=== PATIENT | male | born 1950 | race Two or more races ===

== ENCOUNTER 2023-03-19 11:16 | Inpatient (IN) | payer MEDICARE, MEDICAID ==
[2023-03-19] VITALS (8 sets, daily range): BP systolic 105–136; BP diastolic 41–55
[~2023-03-19] VITALS: Ht 160 cm; Wt 69.3 kg
[~2023-03-19 11:16] MED LIST: ASPI81CH43 PO; DIGO0.1262 PO; FINA5TAB4 PO; GEMF-66 PO; IPRAAER6 IN; LEVO75TA6 PO; LISI2.5T47 PO; MET25T PO; METF-371 PO; TAMS0.4C36 PO
[2023-03-19] MEDS ORDERED: VANCOMYCIN 1GM/250ML 250 ML IV ONE (11:30)
[2023-03-19] MEDS ORDERED: SODIUM CHLORIDE 0.9% 500 ML IV ONE (11:30)
[2023-03-19] MEDS ORDERED: dilTIAZem 25 MG/5 ML VIAL IV ONE (11:30)
[2023-03-19] MEDS ORDERED: PIPERACILLIN-TAZOB 3.375GM 100 ML IV ONE (11:30)
[2023-03-19 11:52] LABS: Basophils # (auto) 0 10 ^3/uL (0-0.2); Monocytes # (auto) 0.8 10 ^3/uL (0-1.3); Nucleated Red Blood Cells % 0.2 %
[2023-03-19 11:53] LABS: Basophils % (auto) 0.3 % (0.0-2.0); Eosinophils # (auto) 0.3 10 ^3/uL (0-0.8); Eosinophils % (auto) 3.1 % (0.0-7.0); Hematocrit 16.7 % (41.0-53.0); Lymphocytes # (auto) 1.3 10 ^3/uL (0.4-5.4); Lymphocytes % (auto) 12.6 % (10.0-50.0); Mean Corpuscular Hemoglobin 27.7 pg (28.0-32.0); Mean Corpuscular Hgb Conc. 31.9 g/dL (32.0-36.0); Mean Corpuscular Volume 86.9 fL (80.0-100.0); Monocytes % (auto) 7.6 % (0.0-12.0); Neutrophils # (auto) 8.1 10 ^3/uL (1.6-8.6); Neutrophils % (auto) 76.4 % (37.0-80.0); Red Blood Cells 1.93 10^6/uL (4.5-5.90); Red Cell Distribution Width 15.9 % (11.8-14.3); White Blood Cell 10.6 10^3/uL (4.4-10.8)
[2023-03-19 12:06] LABS: INR 1.04 (0.9-1.15); Partial Thromboplastin Time 25.1 SEC (24.5-34.5)
[2023-03-19 12:12] LABS: Hemoglobin 5.3 g/dL (13.5-17.5)
[2023-03-19 12:31] LABS: Albumin 2.6 g/dL (3.4-5.0); Calcium 8.2 mg/dL (8.5-10.1); Potassium 4.5 mmol/L (3.5-5.1)
[2023-03-19 12:36] LABS: Bilirubin, Total 0.2 mg/dL (0.2-1.0); Total Protein 5.4 g/dL (6.4-8.2)
[2023-03-19] MEDS ORDERED: ALBUTEROL SULF 2.5 MG/0.5ML(0.5%) NEB SOLN NEB PRN (13:30)
[2023-03-19] MEDS ORDERED: NITROGLYCERIN 0.4 MG SL TAB SL PRN (13:30)
[2023-03-19] MEDS ORDERED: DEXTROSE (50%) 50ML SYRG IV PRN (13:30)
[2023-03-19] MEDS ORDERED: MORPHINE SULFATE INJ 2 MG/ml SYRG IV PRN (13:30)
[2023-03-19] MEDS ORDERED: PANTOPRAZOLE 40 MG/10 ML VIAL INJ IV ONE (13:45)
[2023-03-19] MEDS: IPRATROPIUM BROM 0.5 MG/2.5ML INH SOL NEB SCH ×3 (14:08→22:18)
[2023-03-19] MEDS: ALBUTEROL SULF 2.5 MG/0.5ML(0.5%) NEB SOLN NEB SCH ×3 (14:08→22:18)
[2023-03-19] MEDS ORDERED: VANCOMYCIN PER PHARMACY 0 MG IV SCH (14:45)
[2023-03-19 15:59] LABS: % Iron Saturation 6.5 % (20-55)
[2023-03-19 16:08] LABS: Cholesterol 136 mg/dL (< 200); HDL Cholesterol 46 mg/dL (40-59); LDL Cholesterol 64 mg/dL (< 100); Triglycerides 156 mg/dL (< 150)
[2023-03-19] MEDS ORDERED: CYANOCOBALAMIN (B-12) 1000 MCG/1 ML VIAL IM ONE (19:30)
[2023-03-19] MEDS: ACCU-CHEK COMFORT CURVE STRIP VI SCH ×2 (20:11→23:00)
[2023-03-19] MEDS: ACETAMINOPHEN 325 MG TAB PO PRN (20:18)
[2023-03-19] MEDS: InsuLIN REG 1unit/0.01ml Soln (100units/ml) SC SCH ×2 (20:20→23:24)
[2023-03-19] MEDS: PIPERACILLIN-TAZOB 3.375GM 100 ML IV SCH (23:00)
[2023-03-20] VITALS: BP 124/55
[2023-03-20] MEDS: IPRATROPIUM BROM 0.5 MG/2.5ML INH SOL NEB SCH ×6 (02:17→22:01)
[2023-03-20] MEDS: ALBUTEROL SULF 2.5 MG/0.5ML(0.5%) NEB SOLN NEB SCH ×6 (02:17→22:01)
[2023-03-20 02:20] LABS: Urine Bacteria FEW /hpf (None Seen); Urine Blood Negative /uL (Negative); Urine Specific Gravity 1.009 (1.001-1.035); Urine WBC <1 /hpf (0 - 3)
[2023-03-20 02:25] LABS: Basophils # (auto) 0 10 ^3/uL (0-0.2); Eosinophils # (auto) 0.5 10 ^3/uL (0-0.8); Lymphocytes # (auto) 0.9 10 ^3/uL (0.4-5.4)
[2023-03-20 02:29] LABS: Basophils % (auto) 0.3 % (0.0-2.0); Eosinophils % (auto) 4.4 % (0.0-7.0); Hematocrit 25.2 % (41.0-53.0); Hemoglobin 8.6 g/dL (13.5-17.5); Lymphocytes % (auto) 8.6 % (10.0-50.0); Mean Corpuscular Hemoglobin 28.6 pg (28.0-32.0); Mean Corpuscular Hgb Conc. 34.1 g/dL (32.0-36.0); Mean Corpuscular Volume 83.7 fL (80.0-100.0); Monocytes % (auto) 9.3 % (0.0-12.0); Neutrophils # (auto) 8.4 10 ^3/uL (1.6-8.6); Neutrophils % (auto) 77.4 % (37.0-80.0); Nucleated Red Blood Cells % 0.3 %; Red Blood Cells 3.02 10^6/uL (4.5-5.90); Red Cell Distribution Width 15.6 % (11.8-14.3); White Blood Cell 10.9 10^3/uL (4.4-10.8)
[2023-03-20 05:31] LABS: Albumin 2.6 g/dL (3.4-5.0); Calcium 8.6 mg/dL (8.5-10.1); Potassium 3.6 mmol/L (3.5-5.1)
[2023-03-20 05:35] LABS: Basophils # (auto) 0 10 ^3/uL (0-0.2); Basophils % (auto) 0.3 % (0.0-2.0); Eosinophils # (auto) 0.5 10 ^3/uL (0-0.8); Eosinophils % (auto) 4.7 % (0.0-7.0); Hematocrit 26.5 % (41.0-53.0); Hemoglobin 8.8 g/dL (13.5-17.5); Lymphocytes # (auto) 0.9 10 ^3/uL (0.4-5.4); Lymphocytes % (auto) 7.7 % (10.0-50.0); Mean Corpuscular Hemoglobin 27.7 pg (28.0-32.0); Mean Corpuscular Hgb Conc. 33.2 g/dL (32.0-36.0); Mean Corpuscular Volume 83.4 fL (80.0-100.0); Neutrophils # (auto) 9.1 10 ^3/uL (1.6-8.6); Neutrophils % (auto) 78.3 % (37.0-80.0); Nucleated Red Blood Cells % 0.4 %; Red Blood Cells 3.17 10^6/uL (4.5-5.90); Red Cell Distribution Width 15.5 % (11.8-14.3); White Blood Cell 11.6 10^3/uL (4.4-10.8)
[2023-03-20 05:36] LABS: BUN/Creatinine Ratio 41.9 (10.0-20.0); Bilirubin, Total 0.3 mg/dL (0.2-1.0); Total Protein 6.2 g/dL (6.4-8.2)
[2023-03-20] MEDS: PIPERACILLIN-TAZOB 3.375GM 100 ML IV SCH (06:30)
[2023-03-20] MEDS: InsuLIN REG 1unit/0.01ml Soln (100units/ml) SC SCH ×3 (07:00→17:15)
[2023-03-20] MEDS: ACCU-CHEK COMFORT CURVE STRIP VI SCH ×4 (07:02→22:00)
[2023-03-20 08:06] LABS: Immunoglobulin G, Serum 534 mg/dL (603-1613)
[2023-03-20] MEDS ORDERED: PATIENTS OWN MEDICATION (Levothyroxine Sodium 1 TAB) PO SCH (10:00)
[2023-03-20] MEDS: TAMSULOSIN HYDROCHLORIDE 0.4 MG CAP PO SCH (10:35)
[2023-03-20] MEDS: PANTOPRAZOLE 40 MG/10 ML VIAL INJ IV SCH (10:35)
[2023-03-20] MEDS: ZINC SULFATE 220mg CAP or TAB PO SCH (10:35)
[2023-03-20] MEDS: LEVOTHYROXINE SODIUM 25 MCG TAB PO SCH (10:36)
[2023-03-20] MEDS: FINASTERIDE 5 MG TAB PO SCH (10:36)
[2023-03-20] MEDS: MULTIPLE VITAMIN TAB PO SCH (10:36)
[2023-03-20] MEDS: DIGOXIN 0.125 MG TAB PO SCH (10:37)
[2023-03-20] MEDS ORDERED: VANCOMYCIN 1GM/250ML 250 ML IV SCH (12:00)
[2023-03-20 13:57] LABS: Basophils # (auto) 0 10 ^3/uL (0-0.2); Eosinophils # (auto) 0.4 10 ^3/uL (0-0.8); Hemoglobin 9.3 g/dL (13.5-17.5); Lymphocytes # (auto) 0.8 10 ^3/uL (0.4-5.4); Lymphocytes % (auto) 8.2 % (10.0-50.0); Monocytes # (auto) 0.7 10 ^3/uL (0-1.3); Nucleated Red Blood Cells % 0.3 %
[2023-03-20 13:59] LABS: Basophils % (auto) 0.1 % (0.0-2.0); Eosinophils % (auto) 4.3 % (0.0-7.0); Hematocrit 28.6 % (41.0-53.0); Mean Corpuscular Hemoglobin 27.8 pg (28.0-32.0); Mean Corpuscular Hgb Conc. 32.5 g/dL (32.0-36.0); Mean Corpuscular Volume 85.6 fL (80.0-100.0); Monocytes % (auto) 7.3 % (0.0-12.0); Neutrophils % (auto) 80.1 % (37.0-80.0); Red Blood Cells 3.34 10^6/uL (4.5-5.90)
[2023-03-20] MEDS: CEFEPIME 1GM/ 50ML 50 ML IV SCH (14:08)
[2023-03-20] MEDS: CYANOCOBALAMIN (B-12) 1000 MCG/1 ML VIAL IM SCH (14:10)
[2023-03-20 22:00] VITALS: BP 120/74
[2023-03-20 22:08] LABS: Basophils # (auto) 0 10 ^3/uL (0-0.2); Basophils % (auto) 0.3 % (0.0-2.0); Eosinophils # (auto) 0.5 10 ^3/uL (0-0.8); Eosinophils % (auto) 4.7 % (0.0-7.0); Hematocrit 31.3 % (41.0-53.0); Hemoglobin 10.1 g/dL (13.5-17.5); Lymphocytes # (auto) 0.9 10 ^3/uL (0.4-5.4); Lymphocytes % (auto) 8.3 % (10.0-50.0); Mean Corpuscular Hemoglobin 27.3 pg (28.0-32.0); Mean Corpuscular Hgb Conc. 32.2 g/dL (32.0-36.0); Monocytes # (auto) 1.1 10 ^3/uL (0-1.3); Monocytes % (auto) 9.9 % (0.0-12.0); Neutrophils # (auto) 8.8 10 ^3/uL (1.6-8.6); Neutrophils % (auto) 76.8 % (37.0-80.0); Nucleated Red Blood Cells % 0.2 %; Red Blood Cells 3.69 10^6/uL (4.5-5.90); Red Cell Distribution Width 16.2 % (11.8-14.3); White Blood Cell 11.4 10^3/uL (4.4-10.8)
[2023-03-20 23:55] VITALS: BP 120/74
[2023-03-21] MEDS: CEFEPIME 1GM/ 50ML 50 ML IV SCH (00:11)
[2023-03-21] MEDS: ACCU-CHEK COMFORT CURVE STRIP VI SCH ×4 (00:30→21:59)
[2023-03-21] MEDS ORDERED: traMADol HCL 50 MG TAB PO PRN (00:30)
[2023-03-21] MEDS: InsuLIN REG 1unit/0.01ml Soln (100units/ml) SC SCH ×5 (00:32→21:59)
[2023-03-21] MEDS: IPRATROPIUM BROM 0.5 MG/2.5ML INH SOL NEB SCH ×6 (01:56→22:16)
[2023-03-21] MEDS: ALBUTEROL SULF 2.5 MG/0.5ML(0.5%) NEB SOLN NEB SCH ×6 (01:56→22:16)
[2023-03-21 05:10] VITALS: BP 130/59
[2023-03-21] MEDS: ACETAMINOPHEN 325 MG TAB PO PRN ×2 (06:18→21:05)
[2023-03-21 07:14] LABS: Basophils # (auto) 0 10 ^3/uL (0-0.2); Lymphocytes # (auto) 1.2 10 ^3/uL (0.4-5.4); Mean Corpuscular Hgb Conc. 32.7 g/dL (32.0-36.0); Monocytes # (auto) 1.1 10 ^3/uL (0-1.3); Red Blood Cells 3.53 10^6/uL (4.5-5.90)
[2023-03-21 07:17] LABS: Basophils % (auto) 0.5 % (0.0-2.0); Eosinophils # (auto) 0.6 10 ^3/uL (0-0.8); Eosinophils % (auto) 6.2 % (0.0-7.0); Hemoglobin 9.8 g/dL (13.5-17.5); Mean Corpuscular Hemoglobin 27.8 pg (28.0-32.0); Mean Corpuscular Volume 84.9 fL (80.0-100.0); Monocytes % (auto) 11.3 % (0.0-12.0); Neutrophils # (auto) 6.8 10 ^3/uL (1.6-8.6); Nucleated Red Blood Cells % 0.1 %; Red Cell Distribution Width 16.1 % (11.8-14.3); White Blood Cell 9.8 10^3/uL (4.4-10.8)
[2023-03-21 08:42] VITALS: BP 123/68
[2023-03-21] MEDS: FINASTERIDE 5 MG TAB PO SCH (09:30)
[2023-03-21] MEDS: MULTIPLE VITAMIN TAB PO SCH (09:30)
[2023-03-21] MEDS: ZINC SULFATE 220mg CAP or TAB PO SCH (09:31)
[2023-03-21] MEDS: TAMSULOSIN HYDROCHLORIDE 0.4 MG CAP PO SCH (09:32)
[2023-03-21] MEDS: DIGOXIN 0.125 MG TAB PO SCH (09:33)
[2023-03-21] MEDS: PANTOPRAZOLE 40 MG/10 ML VIAL INJ IV SCH (09:33)
[2023-03-21] MEDS: CYANOCOBALAMIN (B-12) 1000 MCG/1 ML VIAL IM SCH (09:34)
[2023-03-21] MEDS: ASCORBIC ACID 500 MG TAB PO SCH (10:53)
[2023-03-21] MEDS: LEVOTHYROXINE SODIUM 25 MCG TAB PO SCH (10:53)
[2023-03-21] MEDS: FERROUS SULFATE 325mg EC TAB PO SCH (10:53)
[2023-03-21 12:16] VITALS: BP 120/62
[2023-03-21 13:54] LABS: Basophils # (auto) 0 10 ^3/uL (0-0.2); Eosinophils # (auto) 0.5 10 ^3/uL (0-0.8)
[2023-03-21 13:56] LABS: Basophils % (auto) 0.4 % (0.0-2.0); Eosinophils % (auto) 6.7 % (0.0-7.0); Hematocrit 31.1 % (41.0-53.0); Hemoglobin 9.8 g/dL (13.5-17.5); Lymphocytes # (auto) 1.4 10 ^3/uL (0.4-5.4); Lymphocytes % (auto) 17.5 % (10.0-50.0); Mean Corpuscular Hgb Conc. 31.5 g/dL (32.0-36.0); Mean Corpuscular Volume 85.6 fL (80.0-100.0); Monocytes % (auto) 12.2 % (0.0-12.0); Neutrophils % (auto) 63.2 % (37.0-80.0); Nucleated Red Blood Cells % 0.2 %; Red Blood Cells 3.63 10^6/uL (4.5-5.90); Red Cell Distribution Width 16.5 % (11.8-14.3)
[2023-03-21] MEDS: VANCOMYCIN 1GM/250ML 250 ML IV SCH (15:03)
[2023-03-21 17:04] VITALS: BP 154/64
[2023-03-21] MEDS: DAKINS QUARTER STR 0.125% (NaHypochlorite) 473 ML TOPICAL SOL TOP SCH (21:58)
[2023-03-21 22:00] VITALS: BP 115/53
[2023-03-21 22:13] LABS: Basophils # (auto) 0 10 ^3/uL (0-0.2); Basophils % (auto) 0.4 % (0.0-2.0); Eosinophils # (auto) 0.4 10 ^3/uL (0-0.8); Hematocrit 27.9 % (41.0-53.0); Lymphocytes # (auto) 0.7 10 ^3/uL (0.4-5.4); Lymphocytes % (auto) 8.2 % (10.0-50.0); Mean Corpuscular Hemoglobin 27.2 pg (28.0-32.0); Mean Corpuscular Hgb Conc. 32.1 g/dL (32.0-36.0); Mean Corpuscular Volume 84.7 fL (80.0-100.0); Monocytes # (auto) 0.9 10 ^3/uL (0-1.3); Monocytes % (auto) 11.5 % (0.0-12.0); Neutrophils # (auto) 6.1 10 ^3/uL (1.6-8.6); Neutrophils % (auto) 74.9 % (37.0-80.0); Nucleated Red Blood Cells % 0.1 %; Red Cell Distribution Width 16.1 % (11.8-14.3); White Blood Cell 8.2 10^3/uL (4.4-10.8)
[2023-03-22] MEDS: ALBUTEROL SULF 2.5 MG/0.5ML(0.5%) NEB SOLN NEB SCH ×6 (01:56→22:03)
[2023-03-22] MEDS: IPRATROPIUM BROM 0.5 MG/2.5ML INH SOL NEB SCH ×6 (01:56→22:03)
[2023-03-22 05:00] VITALS: BP 145/68
[2023-03-22 05:44] VITALS: BP 148/68
[2023-03-22] MEDS: ACCU-CHEK COMFORT CURVE STRIP VI SCH ×4 (06:16→21:18)
[2023-03-22] MEDS: InsuLIN REG 1unit/0.01ml Soln (100units/ml) SC SCH ×4 (06:16→21:22)
[2023-03-22 08:46] VITALS: BP 134/64
[2023-03-22] MEDS: CYANOCOBALAMIN (B-12) 1000 MCG/1 ML VIAL IM SCH (11:33)
[2023-03-22] MEDS: PANTOPRAZOLE 40 MG/10 ML VIAL INJ IV SCH (11:34)
[2023-03-22] MEDS: FERROUS SULFATE 325mg EC TAB PO SCH (11:34)
[2023-03-22] MEDS: ASCORBIC ACID 500 MG TAB PO SCH (11:34)
[2023-03-22] MEDS: TAMSULOSIN HYDROCHLORIDE 0.4 MG CAP PO SCH (11:35)
[2023-03-22] MEDS: LEVOTHYROXINE SODIUM 25 MCG TAB PO SCH (11:35)
[2023-03-22] MEDS: MULTIPLE VITAMIN TAB PO SCH (11:35)
[2023-03-22] MEDS: FINASTERIDE 5 MG TAB PO SCH (11:35)
[2023-03-22] MEDS: ZINC SULFATE 220mg CAP or TAB PO SCH (11:36)
[2023-03-22] MEDS: DIGOXIN 0.125 MG TAB PO SCH (11:36)
[2023-03-22] MEDS: DAKINS QUARTER STR 0.125% (NaHypochlorite) 473 ML TOPICAL SOL TOP SCH ×2 (11:37→21:18)
[2023-03-22 13:00] VITALS: BP 157/71
[2023-03-22] MEDS: VANCOMYCIN 1GM/250ML 250 ML IV SCH (14:26)
[2023-03-22] MEDS: CEFEPIME 1GM/ 50ML 50 ML IV SCH (15:32)
[2023-03-22 17:00] VITALS: BP 132/69
[2023-03-22 22:00] VITALS: BP 118/60
[2023-03-23] MEDS: ALBUTEROL SULF 2.5 MG/0.5ML(0.5%) NEB SOLN NEB SCH ×6 (02:04→21:49)
[2023-03-23] MEDS: IPRATROPIUM BROM 0.5 MG/2.5ML INH SOL NEB SCH ×6 (02:04→21:49)
[2023-03-23 05:00] VITALS: BP 128/65
[2023-03-23] MEDS: LEVOTHYROXINE SODIUM 25 MCG TAB PO SCH (06:23)
[2023-03-23] MEDS: ACCU-CHEK COMFORT CURVE STRIP VI SCH ×4 (06:24→22:44)
[2023-03-23] MEDS: InsuLIN REG 1unit/0.01ml Soln (100units/ml) SC SCH ×4 (06:26→22:46)
[2023-03-23 09:00] VITALS: BP 135/72
[2023-03-23] MEDS: PANTOPRAZOLE 40 MG/10 ML VIAL INJ IV SCH (11:11)
[2023-03-23] MEDS: CYANOCOBALAMIN (B-12) 1000 MCG/1 ML VIAL IM SCH (11:11)
[2023-03-23] MEDS: FERROUS SULFATE 325mg EC TAB PO SCH (11:12)
[2023-03-23] MEDS: ZINC SULFATE 220mg CAP or TAB PO SCH (11:12)
[2023-03-23] MEDS: TAMSULOSIN HYDROCHLORIDE 0.4 MG CAP PO SCH (11:12)
[2023-03-23] MEDS: DIGOXIN 0.125 MG TAB PO SCH (11:12)
[2023-03-23] MEDS: MULTIPLE VITAMIN TAB PO SCH (11:13)
[2023-03-23] MEDS: ASCORBIC ACID 500 MG TAB PO SCH (11:13)
[2023-03-23] MEDS: DAKINS QUARTER STR 0.125% (NaHypochlorite) 473 ML TOPICAL SOL TOP SCH ×2 (11:13→22:44)
[2023-03-23] MEDS: FINASTERIDE 5 MG TAB PO SCH (11:13)
[2023-03-23 12:36] VITALS: BP 125/66
[2023-03-23] MEDS: CEFEPIME 1GM/ 50ML 50 ML IV SCH (13:55)
[2023-03-23 16:38] VITALS: BP 112/59
[2023-03-23 22:00] VITALS: BP 109/57
[2023-03-24] MEDS: IPRATROPIUM BROM 0.5 MG/2.5ML INH SOL NEB SCH ×6 (01:59→22:43)
[2023-03-24] MEDS: ALBUTEROL SULF 2.5 MG/0.5ML(0.5%) NEB SOLN NEB SCH ×6 (01:59→22:43)
[2023-03-24 05:00] VITALS: BP 146/53
[2023-03-24] MEDS: LEVOTHYROXINE SODIUM 25 MCG TAB PO SCH (06:18)
[2023-03-24] MEDS: ACCU-CHEK COMFORT CURVE STRIP VI SCH ×4 (06:18→21:53)
[2023-03-24] MEDS: InsuLIN REG 1unit/0.01ml Soln (100units/ml) SC SCH ×4 (06:22→21:40)
[2023-03-24 07:25] LABS: Calcium 8.7 mg/dL (8.5-10.1)
[2023-03-24 07:26] LABS: BUN/Creatinine Ratio 23.3 (10.0-20.0)
[2023-03-24 08:00] VITALS: BP 101/65
[2023-03-24] MEDS: PANTOPRAZOLE 40 MG/10 ML VIAL INJ IV SCH (09:20)
[2023-03-24] MEDS: FINASTERIDE 5 MG TAB PO SCH (09:21)
[2023-03-24] MEDS: ASCORBIC ACID 500 MG TAB PO SCH (09:21)
[2023-03-24] MEDS: ZINC SULFATE 220mg CAP or TAB PO SCH (09:21)
[2023-03-24] MEDS: CYANOCOBALAMIN (B-12) 1000 MCG/1 ML VIAL IM SCH (09:21)
[2023-03-24] MEDS: MULTIPLE VITAMIN TAB PO SCH (09:21)
[2023-03-24] MEDS: TAMSULOSIN HYDROCHLORIDE 0.4 MG CAP PO SCH (09:21)
[2023-03-24] MEDS: FERROUS SULFATE 325mg EC TAB PO SCH (09:21)
[2023-03-24] MEDS: DIGOXIN 0.125 MG TAB PO SCH (09:22)
[2023-03-24] MEDS: DAKINS QUARTER STR 0.125% (NaHypochlorite) 473 ML TOPICAL SOL TOP SCH ×2 (09:29→21:49)
[2023-03-24] MEDS ORDERED: VANCOMYCIN 500 MG in D5W 5% 100 ML IV ONE (10:00)
[2023-03-24 12:00] VITALS: BP 127/65
[2023-03-24] MEDS ORDERED: LACTULOSE 20Gm/30ML SOLN PO ONE (12:15)
[2023-03-24] MEDS: CEFEPIME 1GM/ 50ML 50 ML IV SCH (14:13)
[2023-03-24 16:00] VITALS: BP 142/55
[2023-03-24 22:00] VITALS: BP 129/61
[2023-03-25 00:06] LABS: Methylmalonic Acid 585 nmol/L (0-378)
[2023-03-25] MEDS: IPRATROPIUM BROM 0.5 MG/2.5ML INH SOL NEB SCH ×5 (03:17→18:05)
[2023-03-25] MEDS: ALBUTEROL SULF 2.5 MG/0.5ML(0.5%) NEB SOLN NEB SCH ×5 (03:17→18:05)
[2023-03-25 05:00] VITALS: BP 146/75
[2023-03-25] MEDS: InsuLIN REG 1unit/0.01ml Soln (100units/ml) SC SCH ×3 (06:36→17:00)
[2023-03-25] MEDS: LEVOTHYROXINE SODIUM 25 MCG TAB PO SCH (06:37)
[2023-03-25] MEDS: ACCU-CHEK COMFORT CURVE STRIP VI SCH ×3 (06:45→17:00)
[2023-03-25 08:30] VITALS: BP 147/52
[2023-03-25] MEDS: PANTOPRAZOLE 40 MG/10 ML VIAL INJ IV SCH (10:05)
[2023-03-25] MEDS: CYANOCOBALAMIN (B-12) 1000 MCG/1 ML VIAL IM SCH (10:06)
[2023-03-25] MEDS: MULTIPLE VITAMIN TAB PO SCH (10:07)
[2023-03-25] MEDS: ASCORBIC ACID 500 MG TAB PO SCH (10:07)
[2023-03-25] MEDS: ZINC SULFATE 220mg CAP or TAB PO SCH (10:08)
[2023-03-25] MEDS: FERROUS SULFATE 325mg EC TAB PO SCH (10:08)
[2023-03-25] MEDS: FINASTERIDE 5 MG TAB PO SCH (10:08)
[2023-03-25] MEDS: DIGOXIN 0.125 MG TAB PO SCH (10:08)
[2023-03-25] MEDS: TAMSULOSIN HYDROCHLORIDE 0.4 MG CAP PO SCH (10:08)
[2023-03-25] MEDS: DAKINS QUARTER STR 0.125% (NaHypochlorite) 473 ML TOPICAL SOL TOP SCH (10:09)
[2023-03-25 12:30] VITALS: BP 132/72
[2023-03-25 13:03] VITALS: BP 144/51
[2023-03-25] MEDS: CEFEPIME 1GM/ 50ML 50 ML IV SCH (14:56)
[2023-03-25 16:58] VITALS: BP 139/62
== END 2023-03-25 18:57 | DRG 871 ==
LOC: EDBD 11:16 → EDSEX 11:16 → ER 11:16 → TELE 13:30 → TELE-WESTW 03-20 21:35
PROVIDERS: ADMIT Nurse Practitioner Family; ATTEND Family Medicine
PROC: 30233N1 Transfusion of Nonautologous Red Blood Cells into Peripheral Vein, Percutaneous Approach (ICD-10-PCS; principal; 2023-03-19)
DX: A41.9 Sepsis, unspecified organism (principal); J18.9 Pneumonia, unspecified organism; E46 Unspecified protein-calorie malnutrition; I13.0 Hypertensive heart and chronic kidney disease with heart failure and stage 1 through stage 4 chronic kidney disease, or unspecified chronic kidney disease; I47.1 Supraventricular tachycardia; J44.1 Chronic obstructive pulmonary disease with (acute) exacerbation; N18.4 Chronic kidney disease, stage 4 (severe); K92.2 Gastrointestinal hemorrhage, unspecified; N17.9 Acute kidney failure, unspecified; J44.0 Chronic obstructive pulmonary disease with (acute) lower respiratory infection; E03.9 Hypothyroidism, unspecified; E11.22 Type 2 diabetes mellitus with diabetic chronic kidney disease; E53.8 Deficiency of other specified B group vitamins; I48.0 Paroxysmal atrial fibrillation; L89.621 Pressure ulcer of left heel, stage 1; S91.301A Unspecified open wound, right foot, initial encounter; X58.XXXA Exposure to other specified factors, initial encounter; L89.611 Pressure ulcer of right heel, stage 1; E78.00 Pure hypercholesterolemia, unspecified; L97.519 Non-pressure chronic ulcer of other part of right foot with unspecified severity; E11.621 Type 2 diabetes mellitus with foot ulcer; N40.0 Benign prostatic hyperplasia without lower urinary tract symptoms; D50.9 Iron deficiency anemia, unspecified; D75.838 Other thrombocytosis; Z20.822 Contact with and (suspected) exposure to COVID-19; L08.9 Local infection of the skin and subcutaneous tissue, unspecified; I70.201 Unspecified atherosclerosis of native arteries of extremities, right leg; Z91.148 Patient's other noncompliance with medication regimen for other reason; Y93.89 Activity, other specified; Y92.89 Other specified places as the place of occurrence of the external cause; Y99.8 Other external cause status; Z80.3 Family history of malignant neoplasm of breast; Z79.82 Long term (current) use of aspirin; Z79.899 Other long term (current) drug therapy; Z99.81 Dependence on supplemental oxygen
CPT/HCPCS: 36415; 71045; 80048; 80053; 80061; 80202; 81001; 82270; 82565; 82607; 82728; 82784; 82962; 83010; 83036; 83540; 83550; 83605; 83615; 83880; 83930; 84155; 84165; 84443; 84484; 85025; 85045; 85379; 85610; 85730; 86038; 86334; 86335; 86850; 86880; 86900; 86901; 86920; 87040; 87426; 93005; 93306; 93926; 94640; 96365; 96368; 96375; 97110; 97116; 97163; 97530; 99291; C9113; G0378; J1815; J2543; J7060

== ENCOUNTER 2023-04-10 19:27 | Inpatient (IN) | payer MEDICARE, MEDICAID ==
[~2023-04-10] VITALS: Ht 160 cm; Wt 68.0 kg
[2023-04-10 20:18] LABS: Basophils # (auto) 0.1 10 ^3/uL (0-0.2); Eosinophils # (auto) 0.7 10 ^3/uL (0-0.8); Hemoglobin 8.9 g/dL (13.5-17.5); Lymphocytes # (auto) 2.2 10 ^3/uL (0.4-5.4); Monocytes # (auto) 1.4 10 ^3/uL (0-1.3); White Blood Cell 13.2 10^3/uL (4.4-10.8)
[2023-04-10 20:20] LABS: Basophils % (auto) 0.4 % (0.0-2.0); Eosinophils % (auto) 5.7 % (0.0-7.0); Hematocrit 28.9 % (41.0-53.0); Mean Corpuscular Hemoglobin 24.9 pg (28.0-32.0); Mean Corpuscular Hgb Conc. 30.6 g/dL (32.0-36.0); Mean Corpuscular Volume 81.4 fL (80.0-100.0); Monocytes % (auto) 10.8 % (0.0-12.0); Neutrophils # (auto) 8.7 10 ^3/uL (1.6-8.6); Neutrophils % (auto) 66.1 % (37.0-80.0); Nucleated Red Blood Cells % 0.1 %; Red Blood Cells 3.55 10^6/uL (4.5-5.90); Red Cell Distribution Width 15.8 % (11.8-14.3)
[2023-04-10 20:38] LABS: Albumin 2.8 g/dL (3.4-5.0); BUN/Creatinine Ratio 13.3 (10.0-20.0); Calcium 9.3 mg/dL (8.5-10.1); Potassium 4.1 mmol/L (3.5-5.1)
[2023-04-10 20:41] LABS: Bilirubin, Total 0.2 mg/dL (0.2-1.0)
[2023-04-11] VITALS (7 sets, daily range): BP systolic 117–140; BP diastolic 67–84; PULSE 112–124; RESP 16–20; TEMP 98.1–98.3; O2SAT 96–98
[2023-04-11] MEDS ORDERED: DexAMETHasone SOD PHOS 10MG/1ML VIAL INJ IV ONE (05:45)
[2023-04-11] MEDS ORDERED: metroNIDAZOLE 500MG/100ML 100 ML IV ONE (05:45)
[2023-04-11] MEDS ORDERED: ALBUTEROL SULF 2.5 MG/0.5ML(0.5%) NEB SOLN NEB ONE (05:45)
[2023-04-11] MEDS ORDERED: levoFLOXacin 750MG 150 ML IV ONE (05:45)
[2023-04-11] MEDS ORDERED: ONDANSETRON HCL 4 MG/2 ML VIAL IV ONE (06:00)
[2023-04-11] MEDS ORDERED: MORPHINE SULFATE 4 MG/ML SYR/VIAL IV ONE (06:00)
[2023-04-11] MEDS ORDERED: ONDANSETRON HCL 4 MG/2 ML VIAL IV PRN (06:45)
[2023-04-11] MEDS ORDERED: ACETAMINOPHEN 325 MG TAB PO PRN (06:45)
[2023-04-11] MEDS ORDERED: DEXTROSE (50%) 50ML SYRG IV PRN (06:45)
[2023-04-11] MEDS: GABAPENTIN 100 MG CAP PO SCH ×2 (08:39→22:36)
[2023-04-11] MEDS: LEVOTHYROXINE SODIUM 88 MCG TAB PO SCH (08:40)
[2023-04-11] MEDS: InsuLIN REG 1unit/0.01ml Soln (100units/ml) SC SCH ×4 (09:08→22:41)
[2023-04-11] MEDS: ACCU-CHEK COMFORT CURVE STRIP VI SCH ×4 (09:09→22:50)
[2023-04-11] MEDS: METOPROLOL SUCCINATE XL 50 MG TAB PO SCH (10:00)
[2023-04-11] MEDS: DIGOXIN 0.125 MG TAB PO SCH (10:00)
[2023-04-11] MEDS ORDERED: PANTOPRAZOLE 40 MG TAB PO SCH (10:00)
[2023-04-11] MEDS ORDERED: CLOPIDOGREL BISULFATE 75 MG TAB PO SCH (10:00)
[2023-04-11] MEDS: cefTRIAXone 1GM/50ML D5W 50 ML IV SCH (10:22)
[2023-04-11] MEDS: metroNIDAZOLE 500MG/100ML 100 ML IV SCH ×2 (20:16→22:35)
[2023-04-11] MEDS: TAMSULOSIN HYDROCHLORIDE 0.4 MG CAP PO SCH (20:19)
[2023-04-11] MEDS: ALBUTEROL SULF 2.5 MG/0.5ML(0.5%) NEB SOLN NEB PRN (20:19)
[2023-04-11] MEDS: HYDROcodone-ACET 5/325MG TAB PO PRN (20:35)
[2023-04-11] MEDS: MONTELUKAST SODIUM 10 MG TAB PO SCH (22:36)
[2023-04-11] MEDS: ATORVASTATIN 20 MG TAB PO SCH (22:36)
[2023-04-12] VITALS (11 sets, daily range): BP systolic 122–144; BP diastolic 63–71; PULSE 79–96; RESP 14–20; TEMP 97.7–98.2; O2SAT 96–100
[2023-04-12] MEDS ORDERED: INSULIN LANTUS (GLARGINE) 1 /0.01ml (100units/ml) SC ONE
[2023-04-12] MEDS: metroNIDAZOLE 500MG/100ML 100 ML IV SCH ×3 (06:09→21:49)
[2023-04-12] MEDS: ACCU-CHEK COMFORT CURVE STRIP VI SCH ×4 (06:11→21:51)
[2023-04-12] MEDS: LEVOTHYROXINE SODIUM 88 MCG TAB PO SCH (06:12)
[2023-04-12] MEDS: InsuLIN REG 1unit/0.01ml Soln (100units/ml) SC SCH ×4 (06:13→21:58)
[2023-04-12 06:27] LABS: Hemoglobin 8.4 g/dL (13.5-17.5)
[2023-04-12 06:29] LABS: Hematocrit 26.3 % (41.0-53.0); Mean Corpuscular Hemoglobin 26.8 pg (28.0-32.0); Mean Corpuscular Hgb Conc. 32.1 g/dL (32.0-36.0); Mean Corpuscular Volume 83.4 fL (80.0-100.0); Red Blood Cells 3.15 10^6/uL (4.5-5.90); Red Cell Distribution Width 16.1 % (11.8-14.3); White Blood Cell 10.7 10^3/uL (4.4-10.8)
[2023-04-12 06:54] LABS: Basophils % (manual) 0 (0.0-2.0); Blast Cells 0; Eosinophils % (manual) 0 (0-7); Promyelocytes % 0; Reactive Lymphocytes 0
[2023-04-12 07:06] LABS: Urine Bacteria NONE SEEN /hpf (None Seen); Urine Blood Negative /uL (Negative); Urine Clarity Clear (Clear); Urine Color Colorless (Yellow); Urine Protein, UAD 1+ (Negative); Urine Specific Gravity 1.009 (1.001-1.035); Urine Urobilinogen Normal (Negative); Urine WBC <1 /hpf (0 - 3); Urine pH 5.5 (5.0-8.0)
[2023-04-12 09:16] LABS: Band Neutrophils % (manual) 5; Lymphocytes % (manual) 17 (10.0-50.0); Metamyelocytes % 2; Monocytes % (manual) 4 (0-12); Myelocytes % 1
[2023-04-12 09:17] LABS: Platelet Estimate Adequate; RBC Morphology Normal
[2023-04-12 09:34] LABS: Potassium 4.9 mmol/L (3.5-5.1)
[2023-04-12 09:45] LABS: Albumin 2.7 g/dL (3.4-5.0); BUN/Creatinine Ratio 19.6 (10.0-20.0); Bilirubin, Total 0.2 mg/dL (0.2-1.0); Calcium 8.8 mg/dL (8.5-10.1)
[2023-04-12] MEDS: GABAPENTIN 100 MG CAP PO SCH ×2 (09:59→21:48)
[2023-04-12] MEDS: cefTRIAXone 1GM/50ML D5W 50 ML IV SCH (09:59)
[2023-04-12] MEDS: DOCUSATE SOD 100 MG CAP PO SCH (09:59)
[2023-04-12] MEDS: DIGOXIN 0.125 MG TAB PO SCH (10:00)
[2023-04-12] MEDS: METOPROLOL SUCCINATE XL 50 MG TAB PO SCH (10:01)
[2023-04-12] MEDS: INSULIN LANTUS (GLARGINE) 1 /0.01ml (100units/ml) SC SCH ×2 (10:10→21:58)
[2023-04-12] MEDS: ALBUTEROL SULF 2.5 MG/0.5ML(0.5%) NEB SOLN NEB PRN ×2 (10:22→22:56)
[2023-04-12] MEDS ORDERED: DEXTROSE (50%) 50ML SYRG IV PRN (13:45)
[2023-04-12] MEDS: TAMSULOSIN HYDROCHLORIDE 0.4 MG CAP PO SCH (18:00)
[2023-04-12] MEDS: MONTELUKAST SODIUM 10 MG TAB PO SCH (21:48)
[2023-04-12] MEDS: ATORVASTATIN 20 MG TAB PO SCH (21:48)
[2023-04-13] VITALS (10 sets, daily range): BP systolic 126–146; BP diastolic 62–87; PULSE 76–99; RESP 16–20; TEMP 97.7–97.9; O2SAT 97–100
[2023-04-13] MEDS: metroNIDAZOLE 500MG/100ML 100 ML IV SCH ×3 (05:37→22:17)
[2023-04-13] MEDS: LEVOTHYROXINE SODIUM 88 MCG TAB PO SCH (06:17)
[2023-04-13] MEDS: ACCU-CHEK COMFORT CURVE STRIP VI SCH ×4 (06:18→22:16)
[2023-04-13] MEDS: InsuLIN REG 1unit/0.01ml Soln (100units/ml) SC SCH ×4 (06:18→22:22)
[2023-04-13 07:50] LABS: Hemoglobin 8.7 g/dL (13.5-17.5); White Blood Cell 9.4 10^3/uL (4.4-10.8)
[2023-04-13 07:52] LABS: Hematocrit 27.4 % (41.0-53.0); Mean Corpuscular Hemoglobin 25.5 pg (28.0-32.0); Mean Corpuscular Hgb Conc. 31.6 g/dL (32.0-36.0); Mean Corpuscular Volume 80.7 fL (80.0-100.0); Red Cell Distribution Width 15.7 % (11.8-14.3)
[2023-04-13 08:07] LABS: AFP Serum Tumor Marker 2.1 ng/mL (0.0-8.4); PSA Free 0.44 ng/mL; Prostate Specific Antigen 1.5 ng/mL (0.0-4.0)
[2023-04-13] MEDS ORDERED: SODIUM CHLORIDE 0.9% 1,000 ML IV ONE (08:30)
[2023-04-13 09:12] LABS: Basophils % (manual) 0 (0.0-2.0); Blast Cells 0; Promyelocytes % 0; Reactive Lymphocytes 0
[2023-04-13] MEDS: cefTRIAXone 1GM/50ML D5W 50 ML IV SCH (09:21)
[2023-04-13] MEDS: GABAPENTIN 100 MG CAP PO SCH ×2 (10:26→22:16)
[2023-04-13] MEDS: DIGOXIN 0.125 MG TAB PO SCH (10:26)
[2023-04-13] MEDS: DOCUSATE SOD 100 MG CAP PO SCH (10:30)
[2023-04-13] MEDS: METOPROLOL SUCCINATE XL 50 MG TAB PO SCH (10:30)
[2023-04-13] MEDS: HYDROcodone-ACET 5/325MG TAB PO PRN ×3 (10:30→22:15)
[2023-04-13] MEDS: INSULIN LANTUS (GLARGINE) 1 /0.01ml (100units/ml) SC SCH ×2 (11:16→22:21)
[2023-04-13] MEDS: SODIUM CHLORIDE 0.9% 1,000 ML IV SCH (13:15)
[2023-04-13 13:43] LABS: Band Neutrophils % (manual) 9; Eosinophils % (manual) 4 (0-7); Lymphocytes % (manual) 15 (10.0-50.0); Metamyelocytes % 2; Monocytes % (manual) 2 (0-12); Myelocytes % 1
[2023-04-13 13:44] LABS: Platelet Estimate Adequate; RBC Morphology Normal
[2023-04-13 13:55] LABS: Urine Bacteria NONE SEEN /hpf (None Seen); Urine Blood Negative /uL (Negative); Urine Clarity Clear (Clear); Urine Color Yellow (Yellow); Urine Hyaline Cast FEW /lpf (0 - 2); Urine Protein, UAD 2+ (Negative); Urine Urobilinogen Normal (Negative); Urine WBC <1 /hpf (0 - 3)
[2023-04-13 14:01] LABS: Protein, Urine 114.3 mg/dL (0.0-11.9); Urine Protein/Creatinine Ratio 2.2
[2023-04-13] MEDS: TAMSULOSIN HYDROCHLORIDE 0.4 MG CAP PO SCH (18:00)
[2023-04-13 21:34] LABS: BUN/Creatinine Ratio 17.9 (10.0-20.0); Calcium 8.2 mg/dL (8.5-10.1); Potassium 5.1 mmol/L (3.5-5.1)
[2023-04-13] MEDS: MONTELUKAST SODIUM 10 MG TAB PO SCH (22:16)
[2023-04-13] MEDS: ATORVASTATIN 20 MG TAB PO SCH (22:16)
[2023-04-13] MEDS: ALBUTEROL SULF 2.5 MG/0.5ML(0.5%) NEB SOLN NEB PRN (22:22)
[2023-04-14] VITALS (11 sets, daily range): BP systolic 106–166; BP diastolic 56–67; PULSE 17–100; RESP 17–19; TEMP 97.3–98; O2SAT 96–100
[2023-04-14] MEDS: HYDROcodone-ACET 5/325MG TAB PO PRN ×3 (02:30→21:44)
[2023-04-14] MEDS: metroNIDAZOLE 500MG/100ML 100 ML IV SCH ×3 (05:48→21:43)
[2023-04-14] MEDS: SODIUM CHLORIDE 0.9% 1,000 ML IV SCH (05:49)
[2023-04-14 05:50] LABS: Hemoglobin 8.9 g/dL (13.5-17.5); Red Cell Distribution Width 16.1 % (11.8-14.3)
[2023-04-14 05:51] LABS: BUN/Creatinine Ratio 18.3 (10.0-20.0); Calcium 7.7 mg/dL (8.5-10.1); Potassium 4.4 mmol/L (3.5-5.1)
[2023-04-14 05:52] LABS: Hematocrit 28.4 % (41.0-53.0); INR 1.14 (0.9-1.15); Mean Corpuscular Hemoglobin 25.3 pg (28.0-32.0); Mean Corpuscular Hgb Conc. 31.4 g/dL (32.0-36.0); Mean Corpuscular Volume 80.7 fL (80.0-100.0); Partial Thromboplastin Time 30.5 SEC (24.5-34.5); Prothrombin Time 11.9 sec (9.3-11.8); Red Blood Cells 3.52 10^6/uL (4.5-5.90); White Blood Cell 8.6 10^3/uL (4.4-10.8)
[2023-04-14] MEDS: ACCU-CHEK COMFORT CURVE STRIP VI SCH ×4 (05:53→22:39)
[2023-04-14] MEDS: LEVOTHYROXINE SODIUM 88 MCG TAB PO SCH (05:53)
[2023-04-14] MEDS: InsuLIN REG 1unit/0.01ml Soln (100units/ml) SC SCH ×4 (05:53→22:00)
[2023-04-14 06:02] LABS: Basophils % (manual) 0 (0.0-2.0); Blast Cells 0; Metamyelocytes % 0; Myelocytes % 0; Promyelocytes % 0; Reactive Lymphocytes 0
[2023-04-14 07:34] LABS: Anisocytosis Slight; Band Neutrophils % (manual) 10; Eosinophils % (manual) 10 (0-7); Lymphocytes % (manual) 21 (10.0-50.0); Monocytes % (manual) 1 (0-12); Platelet Estimate Adequate
[2023-04-14] MEDS ORDERED: CYANOCOBALAMIN (B-12) 1000 MCG/1 ML VIAL IM ONE (08:30)
[2023-04-14] MEDS: ALBUTEROL SULF 2.5 MG/0.5ML(0.5%) NEB SOLN NEB PRN ×2 (08:45→21:41)
[2023-04-14] MEDS: DIGOXIN 0.125 MG TAB PO SCH (10:37)
[2023-04-14] MEDS: DOCUSATE SOD 100 MG CAP PO SCH (10:38)
[2023-04-14] MEDS: GABAPENTIN 100 MG CAP PO SCH ×2 (10:38→21:42)
[2023-04-14] MEDS: METOPROLOL SUCCINATE XL 50 MG TAB PO SCH (10:39)
[2023-04-14] MEDS: CYANOCOBALAMIN (B-12) 1000 MCG/1 ML VIAL IM SCH (10:40)
[2023-04-14] MEDS: INSULIN LANTUS (GLARGINE) 1 /0.01ml (100units/ml) SC SCH ×2 (10:51→22:00)
[2023-04-14] MEDS: cefTRIAXone 1GM/50ML D5W 50 ML IV SCH (11:00)
[2023-04-14] MEDS ORDERED: LACTULOSE 20Gm/30ML SOLN PO ONE (14:00)
[2023-04-14] MEDS: TAMSULOSIN HYDROCHLORIDE 0.4 MG CAP PO SCH (17:55)
[2023-04-14] MEDS: ATORVASTATIN 20 MG TAB PO SCH (21:41)
[2023-04-14] MEDS: MONTELUKAST SODIUM 10 MG TAB PO SCH (21:41)
[2023-04-15] VITALS (14 sets, daily range): BP systolic 100–141; BP diastolic 45–66; PULSE 80–110; RESP 16–21; TEMP 36.6; O2SAT 97–100
[2023-04-15] MEDS: HYDROcodone-ACET 5/325MG TAB PO PRN ×4 (01:31→18:15)
[2023-04-15] MEDS ORDERED: FER325T PO (06:01)
[2023-04-15] MEDS ORDERED: BUDE0.253 IN (06:01)
[2023-04-15] MEDS ORDERED: REVE175S IN (06:01)
[2023-04-15] MEDS ORDERED: SENN1TAB14 PO (06:01)
[2023-04-15] MEDS ORDERED: MONT5CHW12 PO (06:01)
[2023-04-15] MEDS ORDERED: FURO1TAB32 PO (06:01)
[2023-04-15] MEDS: ACCU-CHEK COMFORT CURVE STRIP VI SCH ×4 (06:02→22:00)
[2023-04-15] MEDS: metroNIDAZOLE 500MG/100ML 100 ML IV SCH ×3 (06:02→22:23)
[2023-04-15] MEDS: LEVOTHYROXINE SODIUM 88 MCG TAB PO SCH (06:02)
[2023-04-15] MEDS: InsuLIN REG 1unit/0.01ml Soln (100units/ml) SC SCH ×4 (06:07→22:00)
[2023-04-15 06:41] LABS: Potassium 4.6 mmol/L (3.5-5.1)
[2023-04-15 07:01] LABS: Hemoglobin 8.6 g/dL (13.5-17.5)
[2023-04-15 07:02] LABS: Mean Corpuscular Hemoglobin 25.6 pg (28.0-32.0); Mean Corpuscular Hgb Conc. 31.8 g/dL (32.0-36.0); Mean Corpuscular Volume 80.4 fL (80.0-100.0); Red Blood Cells 3.36 10^6/uL (4.5-5.90); Red Cell Distribution Width 15.9 % (11.8-14.3); White Blood Cell 9.3 10^3/uL (4.4-10.8)
[2023-04-15 07:12] LABS: Blast Cells 0; Promyelocytes % 0; Reactive Lymphocytes 0
[2023-04-15] MEDS ORDERED: DEXTROSE (50%) 50ML SYRG IV PRN (08:00)
[2023-04-15] MEDS ORDERED: LACTULOSE 20Gm/30ML SOLN PO ONE (09:00)
[2023-04-15] MEDS: cefTRIAXone 1GM/50ML D5W 50 ML IV SCH (09:08)
[2023-04-15 09:09] LABS: Hypochromia Moderate
[2023-04-15] MEDS: DOCUSATE SOD 100 MG CAP PO SCH (09:09)
[2023-04-15] MEDS: GABAPENTIN 100 MG CAP PO SCH ×2 (09:09→21:42)
[2023-04-15] MEDS: DIGOXIN 0.125 MG TAB PO SCH (09:09)
[2023-04-15] MEDS: LISINOPRIL 5 MG TAB PO SCH (09:11)
[2023-04-15] MEDS: CYANOCOBALAMIN (B-12) 1000 MCG/1 ML VIAL IM SCH (09:11)
[2023-04-15] MEDS: METOPROLOL SUCCINATE XL 50 MG TAB PO SCH (09:11)
[2023-04-15 09:20] LABS: Band Neutrophils % (manual) 1; Basophils % (manual) 1 (0.0-2.0); Eosinophils % (manual) 8 (0-7); Lymphocytes % (manual) 16 (10.0-50.0); Metamyelocytes % 5; Monocytes % (manual) 6 (0-12); Myelocytes % 3
[2023-04-15 09:21] LABS: Toxic Granulation Moderate
[2023-04-15 09:22] LABS: Platelet Estimate Adequate
[2023-04-15] MEDS: ALBUTEROL SULF 2.5 MG/0.5ML(0.5%) NEB SOLN NEB PRN ×2 (09:57→18:53)
[2023-04-15] MEDS ORDERED: FUROSEMIDE 20 MG/2 ML VIAL IV SCH (10:00)
[2023-04-15] MEDS ORDERED: MIDAZOLAM HCL 2MG/2ML 2ml VIAL (1mg/ml) IV ONE (10:30)
[2023-04-15] MEDS ORDERED: fentaNYL CITRATE 100 MCG/2 ML VL IV ONE (10:30)
[2023-04-15] MEDS ORDERED: OMNIPAQUE 12mg/ml 500ml ORAL SOLUTION PO ONE (16:17)
[2023-04-15] MEDS ORDERED: IOHEXOL 300 MG/ML 100ML BOTTLE IJ ONE (17:42)
[2023-04-15] MEDS: TAMSULOSIN HYDROCHLORIDE 0.4 MG CAP PO SCH (18:11)
[2023-04-15] MEDS: ATORVASTATIN 20 MG TAB PO SCH (21:42)
[2023-04-15] MEDS: MONTELUKAST SODIUM 10 MG TAB PO SCH (21:43)
[2023-04-16] VITALS (10 sets, daily range): BP systolic 99–140; BP diastolic 55–76; PULSE 78–111; RESP 17–19; TEMP 97.7–99.3; O2SAT 94–100
[2023-04-16] MEDS: HYDROcodone-ACET 5/325MG TAB PO PRN ×2 (03:15→17:34)
[2023-04-16] MEDS: metroNIDAZOLE 500MG/100ML 100 ML IV SCH ×3 (05:41→21:39)
[2023-04-16] MEDS: LEVOTHYROXINE SODIUM 88 MCG TAB PO SCH (05:41)
[2023-04-16] MEDS: InsuLIN REG 1unit/0.01ml Soln (100units/ml) SC SCH ×4 (05:42→22:02)
[2023-04-16] MEDS: ACCU-CHEK COMFORT CURVE STRIP VI SCH ×4 (05:42→22:02)
[2023-04-16 06:28] LABS: Hemoglobin 7.9 g/dL (13.5-17.5); Mean Corpuscular Hemoglobin 25.4 pg (28.0-32.0); Mean Corpuscular Hgb Conc. 31.6 g/dL (32.0-36.0); Mean Corpuscular Volume 80.4 fL (80.0-100.0); Red Blood Cells 3.12 10^6/uL (4.5-5.90); Red Cell Distribution Width 16.1 % (11.8-14.3); White Blood Cell 10.1 10^3/uL (4.4-10.8)
[2023-04-16 07:09] LABS: Band Neutrophils % (manual) 0; Basophils % (manual) 0 (0.0-2.0); Blast Cells 0; Metamyelocytes % 0; Promyelocytes % 0; Reactive Lymphocytes 0
[2023-04-16 08:17] LABS: AFP Serum Tumor Marker <1.8 ng/mL (0.0-8.4)
[2023-04-16] MEDS: cefTRIAXone 1GM/50ML D5W 50 ML IV SCH (09:28)
[2023-04-16] MEDS: CYANOCOBALAMIN (B-12) 1000 MCG/1 ML VIAL IM SCH (09:28)
[2023-04-16] MEDS: DIGOXIN 0.125 MG TAB PO SCH (09:29)
[2023-04-16] MEDS: GABAPENTIN 100 MG CAP PO SCH ×2 (09:29→21:39)
[2023-04-16] MEDS: LISINOPRIL 5 MG TAB PO SCH (09:29)
[2023-04-16] MEDS: METOPROLOL SUCCINATE XL 50 MG TAB PO SCH (09:29)
[2023-04-16] MEDS: ASPirin 81 mg TAB PO SCH (09:29)
[2023-04-16] MEDS: DOCUSATE SOD 100 MG CAP PO SCH ×2 (09:29→09:38)
[2023-04-16 09:44] LABS: Lymphocytes % (manual) 24 (10.0-50.0); Monocytes % (manual) 8 (0-12)
[2023-04-16 09:45] LABS: Eosinophils % (manual) 4 (0-7); Myelocytes % 3; Platelet Estimate Adequate
[2023-04-16] MEDS ORDERED: IOHEXOL 300 MG/ML 100ML BOTTLE IJ ONE (10:52)
[2023-04-16 16:45] LABS: BUN/Creatinine Ratio 10.3 (10.0-20.0); Calcium 7.8 mg/dL (8.5-10.1); Potassium 4.8 mmol/L (3.5-5.1)
[2023-04-16] MEDS: TAMSULOSIN HYDROCHLORIDE 0.4 MG CAP PO SCH (17:34)
[2023-04-16] MEDS: ALBUTEROL SULF 2.5 MG/0.5ML(0.5%) NEB SOLN NEB PRN (18:54)
[2023-04-16] MEDS: MONTELUKAST SODIUM 10 MG TAB PO SCH (21:39)
[2023-04-16] MEDS: ATORVASTATIN 20 MG TAB PO SCH (21:39)
[2023-04-17] VITALS (11 sets, daily range): BP systolic 103–160; BP diastolic 54–81; PULSE 74–110; RESP 16–23; TEMP 97.6–98.9; O2SAT 98–100
[2023-04-17] MEDS: metroNIDAZOLE 500MG/100ML 100 ML IV SCH ×3 (05:16→21:39)
[2023-04-17] MEDS: ALBUTEROL SULF 2.5 MG/0.5ML(0.5%) NEB SOLN NEB PRN ×2 (05:40→19:25)
[2023-04-17 05:44] LABS: Mean Corpuscular Volume 80.5 fL (80.0-100.0)
[2023-04-17 05:47] LABS: Hematocrit 25.6 % (41.0-53.0); Hemoglobin 8.3 g/dL (13.5-17.5); Mean Corpuscular Hgb Conc. 32.3 g/dL (32.0-36.0); Red Blood Cells 3.18 10^6/uL (4.5-5.90); Red Cell Distribution Width 15.8 % (11.8-14.3); White Blood Cell 10.4 10^3/uL (4.4-10.8)
[2023-04-17 06:06] LABS: Albumin 2.2 g/dL (3.4-5.0); Calcium 7.9 mg/dL (8.5-10.1); Potassium 4.6 mmol/L (3.5-5.1)
[2023-04-17 06:11] LABS: BUN/Creatinine Ratio 10.3 (10.0-20.0); Bilirubin, Total 0.2 mg/dL (0.2-1.0); Total Protein 5.6 g/dL (6.4-8.2)
[2023-04-17 06:28] LABS: Basophils % (manual) 0 (0.0-2.0); Blast Cells 0; Myelocytes % 0; Promyelocytes % 0; Reactive Lymphocytes 0
[2023-04-17] MEDS: LEVOTHYROXINE SODIUM 88 MCG TAB PO SCH (06:28)
[2023-04-17] MEDS: InsuLIN REG 1unit/0.01ml Soln (100units/ml) SC SCH ×4 (06:29→21:45)
[2023-04-17] MEDS: ACCU-CHEK COMFORT CURVE STRIP VI SCH ×4 (06:30→21:44)
[2023-04-17 07:58] LABS: Band Neutrophils % (manual) 5; Eosinophils % (manual) 2 (0-7); Lymphocytes % (manual) 13 (10.0-50.0); Metamyelocytes % 1; Monocytes % (manual) 6 (0-12); Platelet Estimate Adequate; RBC Morphology Normal
[2023-04-17] MEDS: CYANOCOBALAMIN (B-12) 1000 MCG/1 ML VIAL IM SCH (09:18)
[2023-04-17] MEDS: DIGOXIN 0.125 MG TAB PO SCH (09:18)
[2023-04-17] MEDS: METOPROLOL SUCCINATE XL 50 MG TAB PO SCH (09:18)
[2023-04-17] MEDS: GABAPENTIN 100 MG CAP PO SCH ×2 (09:19→21:39)
[2023-04-17] MEDS: LISINOPRIL 5 MG TAB PO SCH (09:19)
[2023-04-17] MEDS: cefTRIAXone 1GM/50ML D5W 50 ML IV SCH (09:19)
[2023-04-17] MEDS: ASPirin 81 mg TAB PO SCH (09:19)
[2023-04-17] MEDS: DOCUSATE SOD 100 MG CAP PO SCH (09:20)
[2023-04-17] MEDS: HYDROcodone-ACET 5/325MG TAB PO PRN ×2 (09:26→18:47)
[2023-04-17] MEDS: TAMSULOSIN HYDROCHLORIDE 0.4 MG CAP PO SCH (17:53)
[2023-04-17] MEDS: MONTELUKAST SODIUM 10 MG TAB PO SCH (21:39)
[2023-04-17] MEDS: ATORVASTATIN 20 MG TAB PO SCH (21:40)
[2023-04-18] VITALS (12 sets, daily range): BP systolic 123–140; BP diastolic 65–92; PULSE 80–102; RESP 16–20; TEMP 97.6–98.4; O2SAT 96–100
[2023-04-18] MEDS: HYDROcodone-ACET 5/325MG TAB PO PRN ×4 (00:08→22:30)
[2023-04-18] MEDS: metroNIDAZOLE 500MG/100ML 100 ML IV SCH ×3 (05:43→22:09)
[2023-04-18] MEDS: ACCU-CHEK COMFORT CURVE STRIP VI SCH ×4 (06:02→22:09)
[2023-04-18] MEDS: LEVOTHYROXINE SODIUM 88 MCG TAB PO SCH (06:02)
[2023-04-18] MEDS: InsuLIN REG 1unit/0.01ml Soln (100units/ml) SC SCH ×4 (06:03→22:25)
[2023-04-18] MEDS: ALBUTEROL SULF 2.5 MG/0.5ML(0.5%) NEB SOLN NEB PRN ×3 (06:22→19:36)
[2023-04-18 07:04] LABS: Hematocrit 24.6 % (41.0-53.0); Hemoglobin 7.6 g/dL (13.5-17.5); Mean Corpuscular Hemoglobin 25.2 pg (28.0-32.0); Mean Corpuscular Volume 81.2 fL (80.0-100.0); Red Blood Cells 3.04 10^6/uL (4.5-5.90); Red Cell Distribution Width 15.7 % (11.8-14.3)
[2023-04-18 07:06] LABS: Band Neutrophils % (manual) 0; Basophils % (manual) 0 (0.0-2.0); Blast Cells 0; Metamyelocytes % 0; Promyelocytes % 0; Reactive Lymphocytes 0
[2023-04-18 08:09] LABS: BUN/Creatinine Ratio 9.9 (10.0-20.0); Calcium 7.9 mg/dL (8.5-10.1); Potassium 4.8 mmol/L (3.5-5.1)
[2023-04-18 08:52] LABS: Eosinophils % (manual) 4 (0-7); Lymphocytes % (manual) 18 (10.0-50.0); Monocytes % (manual) 7 (0-12); Myelocytes % 3
[2023-04-18 08:53] LABS: Platelet Estimate Adequate
[2023-04-18] MEDS: cefTRIAXone 1GM/50ML D5W 50 ML IV SCH (09:36)
[2023-04-18] MEDS: GABAPENTIN 100 MG CAP PO SCH ×2 (09:36→22:09)
[2023-04-18] MEDS: FOLIC ACID 1 MG TAB PO SCH (09:36)
[2023-04-18] MEDS: ASPirin 81 mg TAB PO SCH (09:36)
[2023-04-18] MEDS: DOCUSATE SOD 100 MG CAP PO SCH (09:37)
[2023-04-18] MEDS: DIGOXIN 0.125 MG TAB PO SCH (09:37)
[2023-04-18] MEDS: CYANOCOBALAMIN (B-12) 1000 MCG/1 ML VIAL IM SCH (09:38)
[2023-04-18] MEDS: LISINOPRIL 5 MG TAB PO SCH (09:38)
[2023-04-18] MEDS: METOPROLOL SUCCINATE XL 50 MG TAB PO SCH (09:38)
[2023-04-18] MEDS: TAMSULOSIN HYDROCHLORIDE 0.4 MG CAP PO SCH (17:10)
[2023-04-18] MEDS: ATORVASTATIN 20 MG TAB PO SCH (22:09)
[2023-04-18] MEDS: MONTELUKAST SODIUM 10 MG TAB PO SCH (22:09)
[2023-04-19] VITALS (7 sets, daily range): BP systolic 107–156; BP diastolic 61–71; PULSE 62–98; RESP 16–18; TEMP 36.2; O2SAT 95–100
[2023-04-19] MEDS: HYDROcodone-ACET 5/325MG TAB PO PRN ×2 (04:03→09:03)
[2023-04-19] MEDS: metroNIDAZOLE 500MG/100ML 100 ML IV SCH ×2 (05:19→14:00)
[2023-04-19] MEDS: LEVOTHYROXINE SODIUM 88 MCG TAB PO SCH (06:14)
[2023-04-19] MEDS: InsuLIN REG 1unit/0.01ml Soln (100units/ml) SC SCH ×3 (06:15→17:00)
[2023-04-19] MEDS: ACCU-CHEK COMFORT CURVE STRIP VI SCH ×3 (06:15→17:00)
[2023-04-19 06:43] LABS: Basophils # (auto) 0 10 ^3/uL (0-0.2); Eosinophils # (auto) 0.4 10 ^3/uL (0-0.8); Hemoglobin 7.4 g/dL (13.5-17.5); Lymphocytes # (auto) 1.2 10 ^3/uL (0.4-5.4); Mean Corpuscular Hemoglobin 25.5 pg (28.0-32.0); Mean Corpuscular Hgb Conc. 31.7 g/dL (32.0-36.0); Neutrophils # (auto) 3.1 10 ^3/uL (1.6-8.6)
[2023-04-19 06:46] LABS: Basophils % (auto) 0.7 % (0.0-2.0); Eosinophils % (auto) 7.4 % (0.0-7.0); Hematocrit 23.2 % (41.0-53.0); Lymphocytes % (auto) 22.4 % (10.0-50.0); Mean Corpuscular Volume 80.3 fL (80.0-100.0); Monocytes # (auto) 0.8 10 ^3/uL (0-1.3); Monocytes % (auto) 13.7 % (0.0-12.0); Neutrophils % (auto) 55.8 % (37.0-80.0); Nucleated Red Blood Cells % 0.1 %; Red Blood Cells 2.89 10^6/uL (4.5-5.90); White Blood Cell 5.6 10^3/uL (4.4-10.8)
[2023-04-19 07:03] LABS: BUN/Creatinine Ratio 9.2 (10.0-20.0); Calcium 7.7 mg/dL (8.5-10.1); Potassium 4.7 mmol/L (3.5-5.1)
[2023-04-19] MEDS: cefTRIAXone 1GM/50ML D5W 50 ML IV SCH (08:46)
[2023-04-19] MEDS: DIGOXIN 0.125 MG TAB PO SCH (08:52)
[2023-04-19] MEDS: LISINOPRIL 5 MG TAB PO SCH (08:52)
[2023-04-19] MEDS: GABAPENTIN 100 MG CAP PO SCH (08:52)
[2023-04-19] MEDS: ASPirin 81 mg TAB PO SCH (08:53)
[2023-04-19] MEDS: METOPROLOL SUCCINATE XL 50 MG TAB PO SCH (08:53)
[2023-04-19] MEDS: FOLIC ACID 1 MG TAB PO SCH (08:53)
[2023-04-19] MEDS: CYANOCOBALAMIN (B-12) 1000 MCG/1 ML VIAL IM SCH (08:56)
[2023-04-19] MEDS: DOCUSATE SOD 100 MG CAP PO SCH (10:00)
[2023-04-19] MEDS ORDERED: CYAN100056 PO (14:45)
[2023-04-19] MEDS ORDERED: MET500T PO (14:45)
[2023-04-19] MEDS ORDERED: LEVO500T91 PO (14:45)
[2023-04-19] MEDS: TAMSULOSIN HYDROCHLORIDE 0.4 MG CAP PO SCH (18:00)
== END 2023-04-19 17:50 | disposition home health service (06) | DRG 356 ==
LOC: EDBD 19:27 → ER 19:27 → OVERFLOW 04-11 06:40 → WEST WING 04-11 20:42
PROVIDERS: ADMIT Internal Medicine; ATTEND Student in an Organized Health Care Education/Training Program
PROC: 07BD3ZX Excision of Aortic Lymphatic, Percutaneous Approach, Diagnostic (ICD-10-PCS; principal; 2023-04-15)
DX: K57.32 Diverticulitis of large intestine without perforation or abscess without bleeding (principal); N17.0 Acute kidney failure with tubular necrosis; I13.0 Hypertensive heart and chronic kidney disease with heart failure and stage 1 through stage 4 chronic kidney disease, or unspecified chronic kidney disease; K52.9 Noninfective gastroenteritis and colitis, unspecified; J44.9 Chronic obstructive pulmonary disease, unspecified; D64.9 Anemia, unspecified; E11.22 Type 2 diabetes mellitus with diabetic chronic kidney disease; N18.30 Chronic kidney disease, stage 3 unspecified; E11.621 Type 2 diabetes mellitus with foot ulcer; E11.51 Type 2 diabetes mellitus with diabetic peripheral angiopathy without gangrene; L97.519 Non-pressure chronic ulcer of other part of right foot with unspecified severity; E78.5 Hyperlipidemia, unspecified; D72.829 Elevated white blood cell count, unspecified; K59.00 Constipation, unspecified; N40.0 Benign prostatic hyperplasia without lower urinary tract symptoms; R07.89 Other chest pain; I25.10 Atherosclerotic heart disease of native coronary artery without angina pectoris; I25.2 Old myocardial infarction; Z87.891 Personal history of nicotine dependence; Z83.3 Family history of diabetes mellitus; Z80.3 Family history of malignant neoplasm of breast; Z80.1 Family history of malignant neoplasm of trachea, bronchus and lung
CPT/HCPCS: 10005; 36415; 71045; 71250; 71260; 74150; 74176; 74177; 77012; 80048; 80053; 80162; 81001; 82105; 82378; 82570; 82962; 83690; 83880; 83930; 83935; 84154; 84156; 84300; 84439; 84443; 84484; 85007; 85025; 85027; 85610; 85730; 86301; 87045; 87086; 87205; 87427; 87493; 93005; 93926; 93971; 94640; 96365; 96366; 96367; 96375; 97163; G0378; J0696; J1100; J1815; J1956; J2250; J2405; J3490

== ENCOUNTER → 2023-04-25 | Outpatient (CLI) | payer MEDICARE, MEDICAID ==
[~2023-04-25] MED LIST changes: +BUDE0.253 IN; +CLOP75TA70 PO; +CYAN100056 PO; +FER325T PO; +FURO1TAB32 PO; +GAB100C PO; +LEVO500T91 PO; +MET500T PO; +MONT5CHW12 PO; +REVE175S IN; +SENN1TAB14 PO
[2023-04-25 11:35] LABS: Lymphocytes # (auto) 1.2 10 ^3/uL (0.4-5.4); Monocytes # (auto) 0.6 10 ^3/uL (0-1.3); White Blood Cell 14.7 10^3/uL (4.4-10.8)
[2023-04-25 11:37] LABS: Basophils # (auto) 0.2 10 ^3/uL (0-0.2); Basophils % (auto) 1.1 % (0.0-2.0); Eosinophils # (auto) 0.2 10 ^3/uL (0-0.8); Hematocrit 27.1 % (41.0-53.0); Hemoglobin 8.4 g/dL (13.5-17.5); Lymphocytes % (auto) 8.5 % (10.0-50.0); Mean Corpuscular Hemoglobin 24.5 pg (28.0-32.0); Mean Corpuscular Hgb Conc. 31.1 g/dL (32.0-36.0); Mean Corpuscular Volume 78.7 fL (80.0-100.0); Monocytes % (auto) 3.8 % (0.0-12.0); Neutrophils # (auto) 12.6 10 ^3/uL (1.6-8.6); Neutrophils % (auto) 85.6 % (37.0-80.0); Red Blood Cells 3.44 10^6/uL (4.5-5.90); Red Cell Distribution Width 16.7 % (11.8-14.3)
[2023-04-25 12:10] LABS: Calcium 9.2 mg/dL (8.5-10.1); Potassium 4.3 mmol/L (3.5-5.1)
[2023-04-25 12:13] LABS: BUN/Creatinine Ratio 25.5 (10.0-20.0)
[2023-04-25 12:18] LABS: INR 1.11 (0.9-1.15)
== END | disposition home or self-care (01) ==
LOC: LAB 11:19
PROVIDERS: ATTEND Internal Medicine
DX: I10 Essential (primary) hypertension (principal); I50.9 Heart failure, unspecified
CPT/HCPCS: 36415; 80048; 85025; 85610; 85730

== ENCOUNTER 2023-04-28 12:02 | Inpatient (IN) | payer MEDICARE, MEDICAID ==
[2023-04-28] VITALS (8 sets, daily range): BP systolic 98–124; BP diastolic 42–54; PULSE 103–145; RESP 17–27; TEMP 97.5–98.2; O2SAT 95–100
[~2023-04-28] VITALS: Ht 160 cm; Wt 64.3 kg
[~2023-04-28 12:02] MED LIST changes: -CLOP75TA70 PO; -GAB100C PO
[2023-04-28] MEDS ORDERED: SODIUM CHLORIDE 0.9% 1,000 ML IV ONE (12:30)
[2023-04-28] MEDS ORDERED: PIPERACILLIN-TAZOB 3.375GM 100 ML IV ONE (13:00)
[2023-04-28] MEDS ORDERED: VANCOMYCIN 1GM/250ML 250 ML IV ONE (13:00)
[2023-04-28 13:16] LABS: Basophils # (auto) 0.1 10 ^3/uL (0-0.2); Eosinophils # (auto) 0.9 10 ^3/uL (0-0.8); Eosinophils % (auto) 5.9 % (0.0-7.0); Hemoglobin 7.2 g/dL (13.5-17.5); White Blood Cell 15.4 10^3/uL (4.4-10.8)
[2023-04-28 13:18] LABS: Basophils % (auto) 0.8 % (0.0-2.0); Lymphocytes # (auto) 1.9 10 ^3/uL (0.4-5.4); Lymphocytes % (auto) 12.5 % (10.0-50.0); Mean Corpuscular Hemoglobin 24.8 pg (28.0-32.0); Mean Corpuscular Hgb Conc. 31.2 g/dL (32.0-36.0); Mean Corpuscular Volume 79.3 fL (80.0-100.0); Monocytes # (auto) 1.3 10 ^3/uL (0-1.3); Monocytes % (auto) 8.3 % (0.0-12.0); Neutrophils # (auto) 11.2 10 ^3/uL (1.6-8.6); Neutrophils % (auto) 72.5 % (37.0-80.0); Red Cell Distribution Width 16.5 % (11.8-14.3)
[2023-04-28 13:30] LABS: Albumin 2.4 g/dL (3.4-5.0); Calcium 7.8 mg/dL (8.5-10.1); Potassium 4.2 mmol/L (3.5-5.1)
[2023-04-28 13:32] LABS: Lactic Acid w/Reflex 2.9 mmol/L (0.4-2.0)
[2023-04-28 13:34] LABS: BUN/Creatinine Ratio 26.9 (10.0-20.0); Bilirubin, Total 0.2 mg/dL (0.2-1.0); Total Protein 5.2 g/dL (6.4-8.2)
[2023-04-28 18:52] LABS: Urine Bacteria NONE SEEN /hpf (None Seen); Urine Blood Negative /uL (Negative); Urine Clarity Clear (Clear); Urine Color Colorless (Yellow); Urine Hyaline Cast FEW /lpf (0 - 2); Urine Protein, UAD TRACE (Negative); Urine Specific Gravity 1.008 (1.001-1.035); Urine Urobilinogen Normal (Negative); Urine WBC <1 /hpf (0 - 3); Urine pH 5.5 (5.0-8.0)
[2023-04-28] MEDS ORDERED: VANCOMYCIN PER PHARMACY 0 MG IV SCH (19:15)
[2023-04-28] MEDS ORDERED: DOCUSATE SOD 100 MG CAP PO PRN (19:15)
[2023-04-28] MEDS ORDERED: MORPHINE SULFATE INJ 2 MG/ml SYRG IV PRN (19:15)
[2023-04-28] MEDS ORDERED: DEXTROSE (50%) 50ML SYRG IV PRN (19:15)
[2023-04-28] MEDS ORDERED: NITROGLYCERIN 0.4 MG SL TAB SL PRN (19:15)
[2023-04-28] MEDS ORDERED: diphenhdrAMINE HCL 25 MG CAP PO ONE (19:30)
[2023-04-28] MEDS: IPRATROPIUM BROM 0.5 MG/2.5ML INH SOL NEB PRN (21:05)
[2023-04-28] MEDS: ALBUTEROL SULF 2.5 MG/0.5ML(0.5%) NEB SOLN NEB PRN (21:05)
[2023-04-28] MEDS: SODIUM CHLORIDE 0.9% 1,000 ML IV SCH (21:52)
[2023-04-28] MEDS: ACCU-CHEK COMFORT CURVE STRIP VI SCH (22:17)
[2023-04-28] MEDS: METOPROLOL TARTRATE 25 MG TAB PO SCH (22:20)
[2023-04-28] MEDS: InsuLIN REG 1unit/0.01ml Soln (100units/ml) SC SCH (22:20)
[2023-04-28] MEDS: GEMFIBROZIL 600 MG TAB PO SCH (22:20)
[2023-04-28] MEDS: MONTELUKAST SODIUM 10 MG TAB PO SCH (22:20)
[2023-04-28] MEDS: CEFEPIME 1GM/ 50ML 50 ML IV SCH (22:37)
[2023-04-29] VITALS (18 sets, daily range): BP systolic 107–121; BP diastolic 34–88; PULSE 60–117; RESP 15–28; TEMP 97.4–98.9; O2SAT 94–100
[2023-04-29] MEDS ORDERED: CLOP75TA70 PO (00:49)
[2023-04-29] MEDS ORDERED: GAB100C PO (00:49)
[2023-04-29] MEDS: SODIUM CHLORIDE 0.9% 1,000 ML IV SCH ×2 (05:15→17:25)
[2023-04-29] MEDS: METOPROLOL TARTRATE 25 MG TAB PO SCH (06:26)
[2023-04-29] MEDS: InsuLIN REG 1unit/0.01ml Soln (100units/ml) SC SCH ×4 (06:27→22:42)
[2023-04-29] MEDS: CYANOCOBALAMIN 500 MCG TAB PO SCH (06:27)
[2023-04-29] MEDS: LEVOTHYROXINE SODIUM 25 MCG TAB PO SCH (06:27)
[2023-04-29] MEDS: ACCU-CHEK COMFORT CURVE STRIP VI SCH ×4 (06:27→22:31)
[2023-04-29] MEDS: ALBUTEROL SULF 2.5 MG/0.5ML(0.5%) NEB SOLN NEB PRN ×3 (07:03→22:15)
[2023-04-29] MEDS: IPRATROPIUM BROM 0.5 MG/2.5ML INH SOL NEB PRN (07:03)
[2023-04-29 07:12] LABS: Mean Corpuscular Volume 79.8 fL (80.0-100.0)
[2023-04-29 07:15] LABS: Basophils # (auto) 0.1 10 ^3/uL (0-0.2); Basophils % (auto) 0.5 % (0.0-2.0); Eosinophils % (auto) 6.1 % (0.0-7.0); Hematocrit 30.8 % (41.0-53.0); Lymphocytes # (auto) 1.9 10 ^3/uL (0.4-5.4); Lymphocytes % (auto) 11.3 % (10.0-50.0); Mean Corpuscular Hemoglobin 25.9 pg (28.0-32.0); Mean Corpuscular Hgb Conc. 32.5 g/dL (32.0-36.0); Monocytes # (auto) 1.6 10 ^3/uL (0-1.3); Monocytes % (auto) 9.9 % (0.0-12.0); Neutrophils # (auto) 11.9 10 ^3/uL (1.6-8.6); Neutrophils % (auto) 72.2 % (37.0-80.0); Red Blood Cells 3.86 10^6/uL (4.5-5.90); Red Cell Distribution Width 18.5 % (11.8-14.3); White Blood Cell 16.5 10^3/uL (4.4-10.8)
[2023-04-29 07:23] LABS: Potassium 3.6 mmol/L (3.5-5.1)
[2023-04-29 07:56] LABS: Albumin 2.3 g/dL (3.4-5.0); BUN/Creatinine Ratio 30.2 (10.0-20.0); Bilirubin, Total 0.9 mg/dL (0.2-1.0); Calcium 8.1 mg/dL (8.5-10.1); Total Protein 5.9 g/dL (6.4-8.2)
[2023-04-29] MEDS: TAMSULOSIN HYDROCHLORIDE 0.4 MG CAP PO SCH (09:04)
[2023-04-29] MEDS: GEMFIBROZIL 600 MG TAB PO SCH ×2 (09:04→22:31)
[2023-04-29] MEDS: DIGOXIN 0.125 MG TAB PO SCH (09:04)
[2023-04-29] MEDS: FERROUS SULFATE 325mg EC TAB PO SCH (09:06)
[2023-04-29] MEDS: PANTOPRAZOLE 40 MG TAB PO SCH (09:06)
[2023-04-29] MEDS: ACETAMINOPHEN 325 MG TAB PO PRN ×2 (09:06→20:45)
[2023-04-29] MEDS: SENNA 8.6 MG TAB PO SCH (09:06)
[2023-04-29] MEDS ORDERED: FUROSEMIDE 40 MG TAB PO SCH (10:00)
[2023-04-29] MEDS ORDERED: LISINOPRIL 5 MG TAB PO SCH (10:00)
[2023-04-29] MEDS ORDERED: LORazepam 2MG/ML-1ML VIAL IV ONE (15:00)
[2023-04-29] MEDS: VANCOMYCIN 1GM/250ML 250 ML IV SCH (15:16)
[2023-04-29] MEDS ORDERED: IPRATROPIUM BROM 0.5 MG/2.5ML INH SOL NEB SCH ×4 (18:00→22:00)
[2023-04-29] MEDS ORDERED: HYDROcodone-ACET 7.5/325MG TAB PO PRN (21:00)
[2023-04-29] MEDS: IPRATROPIUM BROM 0.5 MG/2.5ML INH SOL NEB SCH (22:15)
[2023-04-29] MEDS: CEFEPIME 1GM/ 50ML 50 ML IV SCH (22:31)
[2023-04-29] MEDS: MONTELUKAST SODIUM 10 MG TAB PO SCH (22:31)
[2023-04-30] VITALS (18 sets, daily range): BP systolic 113–126; BP diastolic 52–69; PULSE 63–120; RESP 15–20; TEMP 97.7–98.1; O2SAT 96–100
[2023-04-30] MEDS: ALBUTEROL SULF 2.5 MG/0.5ML(0.5%) NEB SOLN NEB PRN ×4 (02:03→19:35)
[2023-04-30] MEDS: IPRATROPIUM BROM 0.5 MG/2.5ML INH SOL NEB SCH ×6 (02:03→22:24)
[2023-04-30] MEDS: SODIUM CHLORIDE 0.9% 1,000 ML IV SCH ×2 (04:20→17:40)
[2023-04-30 05:59] LABS: Hemoglobin 11.2 g/dL (13.5-17.5); Mean Corpuscular Hemoglobin 25.2 pg (28.0-32.0)
[2023-04-30 06:03] LABS: Hematocrit 34.8 % (41.0-53.0); Mean Corpuscular Hgb Conc. 32.2 g/dL (32.0-36.0); Mean Corpuscular Volume 78.1 fL (80.0-100.0); Red Blood Cells 4.45 10^6/uL (4.5-5.90); Red Cell Distribution Width 19.4 % (11.8-14.3); White Blood Cell 12.5 10^3/uL (4.4-10.8)
[2023-04-30 06:13] LABS: Basophils % (manual) 0 (0.0-2.0); Blast Cells 0; Metamyelocytes % 0; Myelocytes % 0; Promyelocytes % 0; Reactive Lymphocytes 0
[2023-04-30] MEDS: LEVOTHYROXINE SODIUM 25 MCG TAB PO SCH (06:21)
[2023-04-30] MEDS: CYANOCOBALAMIN 500 MCG TAB PO SCH (06:21)
[2023-04-30] MEDS: ACCU-CHEK COMFORT CURVE STRIP VI SCH ×4 (06:21→22:27)
[2023-04-30 06:22] LABS: BUN/Creatinine Ratio 28.3 (10.0-20.0); Calcium 8.8 mg/dL (8.5-10.1); Potassium 3.3 mmol/L (3.5-5.1)
[2023-04-30 06:24] LABS: INR 1.19 (0.9-1.15); Partial Thromboplastin Time 30.6 SEC (24.5-34.5); Prothrombin Time 12.4 sec (9.3-11.8)
[2023-04-30] MEDS: InsuLIN REG 1unit/0.01ml Soln (100units/ml) SC SCH ×4 (06:29→22:25)
[2023-04-30] MEDS ORDERED: POTASSIUM EFFERVESENT TAB 25 MEQ GT ONE (07:30)
[2023-04-30] MEDS: FERROUS SULFATE 325mg EC TAB PO SCH (08:44)
[2023-04-30] MEDS: GEMFIBROZIL 600 MG TAB PO SCH ×2 (08:45→22:22)
[2023-04-30] MEDS ORDERED: POTASSIUM EFFERVESENT TAB 25 MEQ PO ONE (08:45)
[2023-04-30] MEDS: DIGOXIN 0.125 MG TAB PO SCH (08:45)
[2023-04-30] MEDS: SENNA 8.6 MG TAB PO SCH (08:46)
[2023-04-30] MEDS: TAMSULOSIN HYDROCHLORIDE 0.4 MG CAP PO SCH (08:46)
[2023-04-30] MEDS: PANTOPRAZOLE 40 MG TAB PO SCH (08:46)
[2023-04-30 08:52] LABS: Band Neutrophils % (manual) 1; Eosinophils % (manual) 6 (0-7); Lymphocytes % (manual) 16 (10.0-50.0); Monocytes % (manual) 12 (0-12)
[2023-04-30 08:53] LABS: Platelet Estimate Adequate
[2023-04-30] MEDS: ACETAMINOPHEN 325 MG TAB PO PRN (11:12)
[2023-04-30] MEDS: CEFEPIME 1GM/ 50ML 50 ML IV SCH ×2 (11:13→22:21)
[2023-04-30] MEDS: VANCOMYCIN 1GM/250ML 250 ML IV SCH (14:19)
[2023-04-30] MEDS: HYDROcodone-ACET 5/325MG TAB PO PRN (18:27)
[2023-04-30] MEDS: MONTELUKAST SODIUM 10 MG TAB PO SCH (22:23)
[2023-05-01] VITALS (23 sets, daily range): BP systolic 102–160; BP diastolic 50–79; PULSE 90–125; RESP 14–18; TEMP 97.9–98.7; O2SAT 93–100
[2023-05-01] MEDS: IPRATROPIUM BROM 0.5 MG/2.5ML INH SOL NEB SCH ×6 (01:47→21:44)
[2023-05-01] MEDS: ACCU-CHEK COMFORT CURVE STRIP VI SCH ×4 (06:22→21:14)
[2023-05-01] MEDS: InsuLIN REG 1unit/0.01ml Soln (100units/ml) SC SCH ×4 (06:22→21:31)
[2023-05-01] MEDS: SODIUM CHLORIDE 0.9% 1,000 ML IV SCH ×2 (06:23→20:20)
[2023-05-01] MEDS: CYANOCOBALAMIN 500 MCG TAB PO SCH (06:23)
[2023-05-01] MEDS: LEVOTHYROXINE SODIUM 25 MCG TAB PO SCH (06:23)
[2023-05-01 06:32] LABS: Basophils # (auto) 0.1 10 ^3/uL (0-0.2); Eosinophils % (auto) 8.1 % (0.0-7.0); Lymphocytes # (auto) 1.8 10 ^3/uL (0.4-5.4); Mean Corpuscular Volume 78.2 fL (80.0-100.0); Nucleated Red Blood Cells % 0.1 %
[2023-05-01 06:35] LABS: Basophils % (auto) 0.9 % (0.0-2.0); Hematocrit 33.1 % (41.0-53.0); Hemoglobin 10.7 g/dL (13.5-17.5); Lymphocytes % (auto) 14.2 % (10.0-50.0); Mean Corpuscular Hemoglobin 25.2 pg (28.0-32.0); Mean Corpuscular Hgb Conc. 32.3 g/dL (32.0-36.0); Monocytes # (auto) 1.6 10 ^3/uL (0-1.3); Monocytes % (auto) 12.5 % (0.0-12.0); Neutrophils # (auto) 8.1 10 ^3/uL (1.6-8.6); Neutrophils % (auto) 64.3 % (37.0-80.0); Red Blood Cells 4.23 10^6/uL (4.5-5.90); Red Cell Distribution Width 18.8 % (11.8-14.3); White Blood Cell 12.5 10^3/uL (4.4-10.8)
[2023-05-01 06:59] LABS: BUN/Creatinine Ratio 27.6 (10.0-20.0); Calcium 9.2 mg/dL (8.5-10.1); Potassium 3.8 mmol/L (3.5-5.1)
[2023-05-01] MEDS: HYDROcodone-ACET 5/325MG TAB PO PRN ×2 (09:03→17:04)
[2023-05-01] MEDS: DIGOXIN 0.125 MG TAB PO SCH (09:26)
[2023-05-01] MEDS: TAMSULOSIN HYDROCHLORIDE 0.4 MG CAP PO SCH (09:26)
[2023-05-01] MEDS: PANTOPRAZOLE 40 MG TAB PO SCH (09:26)
[2023-05-01] MEDS: GEMFIBROZIL 600 MG TAB PO SCH ×2 (09:27→21:13)
[2023-05-01] MEDS ORDERED: ANGIOMAX 250 MG VIAL IV ONE (11:32)
[2023-05-01] MEDS ORDERED: fentaNYL CITRATE 100 MCG/2 ML VL ONE (11:32)
[2023-05-01] MEDS ORDERED: MIDAZOLAM HCL 2MG/2ML 2ml VIAL (1mg/ml) ONE (11:33)
[2023-05-01] MEDS ORDERED: LIDOCAINE 2%HCL (LOCAL ANESTH.) INJ 20ML MDV ONE (11:33)
[2023-05-01] MEDS ORDERED: IODIXANOL 320MG/ML 100ML BTL IV ONE (11:33)
[2023-05-01] MEDS ORDERED: SODIUM CHL 0.9% 0 ML ONE (11:33)
[2023-05-01] MEDS: CEFEPIME 1GM/ 50ML 50 ML IV SCH ×2 (13:25→21:13)
[2023-05-01] MEDS: SENNA 8.6 MG TAB PO SCH (13:25)
[2023-05-01] MEDS: FERROUS SULFATE 325mg EC TAB PO SCH (13:26)
[2023-05-01] MEDS: VANCOMYCIN 1GM/250ML 250 ML IV SCH (14:00)
[2023-05-01] MEDS: ALBUTEROL SULF 2.5 MG/0.5ML(0.5%) NEB SOLN NEB PRN ×2 (18:36→21:44)
[2023-05-01] MEDS: MONTELUKAST SODIUM 10 MG TAB PO SCH (21:13)
[2023-05-02] VITALS (19 sets, daily range): BP systolic 121–147; BP diastolic 65–73; PULSE 95–138; RESP 13–24; TEMP 98–98.6; O2SAT 93–100
[2023-05-02] MEDS: IPRATROPIUM BROM 0.5 MG/2.5ML INH SOL NEB SCH ×6 (02:00→22:27)
[2023-05-02 05:55] LABS: Mean Corpuscular Hemoglobin 25.1 pg (28.0-32.0)
[2023-05-02 05:56] LABS: Hematocrit 31.8 % (41.0-53.0); Mean Corpuscular Hgb Conc. 31.6 g/dL (32.0-36.0); Mean Corpuscular Volume 79.5 fL (80.0-100.0); Red Cell Distribution Width 18.4 % (11.8-14.3)
[2023-05-02] MEDS: LEVOTHYROXINE SODIUM 25 MCG TAB PO SCH (05:59)
[2023-05-02] MEDS: CYANOCOBALAMIN 500 MCG TAB PO SCH (06:00)
[2023-05-02] MEDS: ACCU-CHEK COMFORT CURVE STRIP VI SCH ×4 (06:00→23:51)
[2023-05-02] MEDS: InsuLIN REG 1unit/0.01ml Soln (100units/ml) SC SCH ×4 (06:01→23:53)
[2023-05-02 06:07] LABS: Basophils % (manual) 0 (0.0-2.0); Blast Cells 0; Metamyelocytes % 0; Myelocytes % 0; Promyelocytes % 0; Reactive Lymphocytes 0
[2023-05-02 06:09] LABS: Calcium 9.1 mg/dL (8.5-10.1); Potassium 3.8 mmol/L (3.5-5.1)
[2023-05-02 06:15] LABS: BUN/Creatinine Ratio 24.1 (10.0-20.0)
[2023-05-02] MEDS: CEFEPIME 1GM/ 50ML 50 ML IV SCH (09:12)
[2023-05-02] MEDS: FERROUS SULFATE 325mg EC TAB PO SCH (09:12)
[2023-05-02] MEDS: TAMSULOSIN HYDROCHLORIDE 0.4 MG CAP PO SCH (09:12)
[2023-05-02] MEDS: DIGOXIN 0.125 MG TAB PO SCH (09:13)
[2023-05-02] MEDS: GEMFIBROZIL 600 MG TAB PO SCH ×2 (09:13→23:55)
[2023-05-02] MEDS: HYDROcodone-ACET 5/325MG TAB PO PRN ×3 (09:13→23:55)
[2023-05-02] MEDS: PANTOPRAZOLE 40 MG TAB PO SCH (09:14)
[2023-05-02] MEDS: SENNA 8.6 MG TAB PO SCH (09:14)
[2023-05-02] MEDS: SODIUM CHLORIDE 0.9% 1,000 ML IV SCH (09:40)
[2023-05-02] MEDS ORDERED: VANCOMYCIN 750mg/250ml 250 ML IV SCH ×2 (10:00→14:30)
[2023-05-02] MEDS ORDERED: fentaNYL CITRATE 100 MCG/2 ML VL ONE (10:00)
[2023-05-02] MEDS ORDERED: MIDAZOLAM HCL 2MG/2ML 2ml VIAL (1mg/ml) ONE (10:00)
[2023-05-02 10:04] LABS: Band Neutrophils % (manual) 3; Eosinophils % (manual) 9 (0-7); Lymphocytes % (manual) 16 (10.0-50.0); Monocytes % (manual) 13 (0-12)
[2023-05-02 10:06] LABS: Anisocytosis Slight; Hypochromia Slight; Platelet Estimate Adequate
[2023-05-02] MEDS ORDERED: PROPOFOL 10 MG/ML 20 ML IV ONE ×2 (10:11→10:12)
[2023-05-02] MEDS ORDERED: ONDANSETRON HCL 4 MG/2 ML VIAL ONE (10:11)
[2023-05-02] MEDS ORDERED: ROPIVACAINE 0.5% (5MG/ML) 20ML AMPULE IJ ONE (10:13)
[2023-05-02] MEDS ORDERED: ceFAZolin 1GM VL ONE (10:13)
[2023-05-02] MEDS ORDERED: ceFAZolin 1GM/50ML 50 ML IV ONE (10:15)
[2023-05-02] MEDS ORDERED: BACITRACIN TOP OINT 1 UD PKG TOP ONE (11:11)
[2023-05-02] MEDS ORDERED: ONDANSETRON HCL 4 MG/2 ML VIAL IV PRN (11:15)
[2023-05-02] MEDS ORDERED: HYDROmorphone HCL 2 MG/ML VL/or syr IV PRN (11:15)
[2023-05-02] MEDS: VANCOMYCIN 750mg/250ml 250 ML IV SCH (14:58)
[2023-05-02] MEDS ORDERED: LIDOCAINE 1% (LOCAL ANESTH.) PF 5ml SDV ID ONE (16:30)
[2023-05-02] MEDS ORDERED: MORPHINE SULFATE INJ 2 MG/ml SYRG IV PRN (18:45)
[2023-05-02] MEDS: ALBUTEROL SULF 2.5 MG/0.5ML(0.5%) NEB SOLN NEB PRN ×2 (18:50→22:27)
[2023-05-02] MEDS: SODIUM CHLOR 0.9% PF (SALINE LOCK) 10ML VIAL/SYR IV SCH (23:52)
[2023-05-02] MEDS: MONTELUKAST SODIUM 10 MG TAB PO SCH (23:56)
[2023-05-03] VITALS (18 sets, daily range): BP systolic 104–164; BP diastolic 58–74; PULSE 100–133; RESP 18–20; TEMP 97.5–98; O2SAT 93–100
[2023-05-03] MEDS: CEFEPIME 1GM/ 50ML 50 ML IV SCH ×3 (00:04→22:48)
[2023-05-03] MEDS: SODIUM CHLORIDE 0.9% 1,000 ML IV SCH ×2 (00:04→12:22)
[2023-05-03] MEDS: IPRATROPIUM BROM 0.5 MG/2.5ML INH SOL NEB SCH ×6 (02:00→21:52)
[2023-05-03 06:03] LABS: Hemoglobin 10.3 g/dL (13.5-17.5); Mean Corpuscular Hemoglobin 25.1 pg (28.0-32.0); Red Blood Cells 4.11 10^6/uL (4.5-5.90); White Blood Cell 11.8 10^3/uL (4.4-10.8)
[2023-05-03 06:05] LABS: Hematocrit 33.1 % (41.0-53.0); Mean Corpuscular Hgb Conc. 31.2 g/dL (32.0-36.0); Mean Corpuscular Volume 80.4 fL (80.0-100.0); Red Cell Distribution Width 18.7 % (11.8-14.3)
[2023-05-03] MEDS: ALBUTEROL SULF 2.5 MG/0.5ML(0.5%) NEB SOLN NEB PRN ×3 (06:11→14:13)
[2023-05-03 06:13] LABS: Calcium 9.7 mg/dL (8.5-10.1); Potassium 4.2 mmol/L (3.5-5.1)
[2023-05-03 06:15] LABS: Basophils % (manual) 0 (0.0-2.0); Blast Cells 0; Myelocytes % 0; Promyelocytes % 0; Reactive Lymphocytes 0
[2023-05-03] MEDS: CYANOCOBALAMIN 500 MCG TAB PO SCH (06:27)
[2023-05-03] MEDS: LEVOTHYROXINE SODIUM 25 MCG TAB PO SCH (06:27)
[2023-05-03] MEDS: ACCU-CHEK COMFORT CURVE STRIP VI SCH ×4 (06:27→21:09)
[2023-05-03] MEDS: InsuLIN REG 1unit/0.01ml Soln (100units/ml) SC SCH ×4 (06:33→21:19)
[2023-05-03 08:09] LABS: Band Neutrophils % (manual) 5; Eosinophils % (manual) 8 (0-7); Lymphocytes % (manual) 13 (10.0-50.0); Metamyelocytes % 1; Monocytes % (manual) 9 (0-12)
[2023-05-03 08:10] LABS: Platelet Estimate Adequate
[2023-05-03] MEDS: FERROUS SULFATE 325mg EC TAB PO SCH (09:58)
[2023-05-03] MEDS: GEMFIBROZIL 600 MG TAB PO SCH ×2 (09:58→21:08)
[2023-05-03] MEDS: TAMSULOSIN HYDROCHLORIDE 0.4 MG CAP PO SCH (09:58)
[2023-05-03] MEDS: SENNA 8.6 MG TAB PO SCH (09:58)
[2023-05-03] MEDS: PANTOPRAZOLE 40 MG TAB PO SCH (09:58)
[2023-05-03] MEDS: DIGOXIN 0.125 MG TAB PO SCH (09:58)
[2023-05-03] MEDS: HYDROcodone-ACET 5/325MG TAB PO PRN ×2 (10:05→20:49)
[2023-05-03] MEDS: SODIUM CHLOR 0.9% PF (SALINE LOCK) 10ML VIAL/SYR IV SCH ×2 (10:06→21:09)
[2023-05-03] MEDS: VANCOMYCIN 750mg/250ml 250 ML IV SCH ×2 (15:00→21:14)
[2023-05-03] MEDS: MONTELUKAST SODIUM 10 MG TAB PO SCH (21:09)
[2023-05-04] VITALS (20 sets, daily range): BP systolic 124–142; BP diastolic 60–79; PULSE 104–124; RESP 14–20; TEMP 36.6; O2SAT 97–100
[2023-05-04] MEDS: SODIUM CHLORIDE 0.9% 1,000 ML IV SCH ×2 (01:40→16:36)
[2023-05-04] MEDS: IPRATROPIUM BROM 0.5 MG/2.5ML INH SOL NEB SCH ×6 (02:03→21:59)
[2023-05-04 05:48] LABS: Hemoglobin 11.1 g/dL (13.5-17.5); Lymphocytes # (auto) 1.7 10 ^3/uL (0.4-5.4); Monocytes # (auto) 1.4 10 ^3/uL (0-1.3); Nucleated Red Blood Cells % 0.1 %
[2023-05-04 05:58] LABS: Basophils # (auto) 0.2 10 ^3/uL (0-0.2); Basophils % (auto) 1.3 % (0.0-2.0); Eosinophils # (auto) 0.8 10 ^3/uL (0-0.8); Eosinophils % (auto) 5.9 % (0.0-7.0); Hematocrit 35.1 % (41.0-53.0); Lymphocytes % (auto) 12.8 % (10.0-50.0); Mean Corpuscular Hemoglobin 25.3 pg (28.0-32.0); Mean Corpuscular Hgb Conc. 31.7 g/dL (32.0-36.0); Mean Corpuscular Volume 79.6 fL (80.0-100.0); Red Blood Cells 4.41 10^6/uL (4.5-5.90); Red Cell Distribution Width 18.8 % (11.8-14.3); White Blood Cell 13.1 10^3/uL (4.4-10.8)
[2023-05-04] MEDS: ALBUTEROL SULF 2.5 MG/0.5ML(0.5%) NEB SOLN NEB PRN ×5 (06:00→21:59)
[2023-05-04 06:09] LABS: Potassium 4.5 mmol/L (3.5-5.1)
[2023-05-04 06:11] LABS: BUN/Creatinine Ratio 16.1 (10.0-20.0)
[2023-05-04] MEDS: LEVOTHYROXINE SODIUM 25 MCG TAB PO SCH (06:33)
[2023-05-04] MEDS: ACCU-CHEK COMFORT CURVE STRIP VI SCH ×4 (06:33→22:07)
[2023-05-04] MEDS: CYANOCOBALAMIN 500 MCG TAB PO SCH (06:33)
[2023-05-04] MEDS: InsuLIN REG 1unit/0.01ml Soln (100units/ml) SC SCH ×4 (06:35→22:29)
[2023-05-04] MEDS: CEFEPIME 1GM/ 50ML 50 ML IV SCH ×2 (10:22→22:19)
[2023-05-04] MEDS: DIGOXIN 0.125 MG TAB PO SCH (10:24)
[2023-05-04] MEDS: TAMSULOSIN HYDROCHLORIDE 0.4 MG CAP PO SCH (10:24)
[2023-05-04] MEDS: GEMFIBROZIL 600 MG TAB PO SCH ×2 (10:24→22:07)
[2023-05-04] MEDS: PANTOPRAZOLE 40 MG TAB PO SCH (10:24)
[2023-05-04] MEDS: SENNA 8.6 MG TAB PO SCH (10:24)
[2023-05-04] MEDS: SODIUM CHLOR 0.9% PF (SALINE LOCK) 10ML VIAL/SYR IV SCH ×2 (10:24→22:07)
[2023-05-04] MEDS: FERROUS SULFATE 325mg EC TAB PO SCH (10:25)
[2023-05-04] MEDS: HYDROcodone-ACET 5/325MG TAB PO PRN (20:05)
[2023-05-04] MEDS: VANCOMYCIN 750mg/250ml 250 ML IV SCH (21:01)
[2023-05-04] MEDS: MONTELUKAST SODIUM 10 MG TAB PO SCH (22:07)
[2023-05-05] VITALS (19 sets, daily range): BP systolic 123–149; BP diastolic 57–84; PULSE 94–129; RESP 16–20; TEMP 36.6; O2SAT 98–100
[2023-05-05] MEDS: ALBUTEROL SULF 2.5 MG/0.5ML(0.5%) NEB SOLN NEB PRN ×3 (02:06→14:24)
[2023-05-05] MEDS: IPRATROPIUM BROM 0.5 MG/2.5ML INH SOL NEB SCH ×6 (02:06→22:00)
[2023-05-05] MEDS: SODIUM CHLORIDE 0.9% 1,000 ML IV SCH (04:20)
[2023-05-05 05:56] LABS: Hemoglobin 10.1 g/dL (13.5-17.5)
[2023-05-05 05:59] LABS: Hematocrit 31.2 % (41.0-53.0); Mean Corpuscular Hemoglobin 25.3 pg (28.0-32.0); Mean Corpuscular Hgb Conc. 32.5 g/dL (32.0-36.0); Mean Corpuscular Volume 77.9 fL (80.0-100.0); Red Blood Cells 4.01 10^6/uL (4.5-5.90); Red Cell Distribution Width 18.8 % (11.8-14.3)
[2023-05-05 06:14] LABS: Basophils % (manual) 0 (0.0-2.0); Blast Cells 0; Metamyelocytes % 0; Myelocytes % 0; Promyelocytes % 0; Reactive Lymphocytes 0
[2023-05-05] MEDS: LEVOTHYROXINE SODIUM 25 MCG TAB PO SCH (06:22)
[2023-05-05] MEDS: ACCU-CHEK COMFORT CURVE STRIP VI SCH ×4 (06:22→21:19)
[2023-05-05] MEDS: CYANOCOBALAMIN 500 MCG TAB PO SCH (06:22)
[2023-05-05] MEDS: InsuLIN REG 1unit/0.01ml Soln (100units/ml) SC SCH ×4 (06:25→21:46)
[2023-05-05 06:36] LABS: Potassium 4.2 mmol/L (3.5-5.1)
[2023-05-05 06:41] LABS: BUN/Creatinine Ratio 19.6 (10.0-20.0); Calcium 11.2 mg/dL (8.5-10.1)
[2023-05-05 06:43] LABS: Band Neutrophils % (manual) 6; Eosinophils % (manual) 6 (0-7); Lymphocytes % (manual) 18 (10.0-50.0); Monocytes % (manual) 13 (0-12)
[2023-05-05 06:45] LABS: Platelet Estimate Increa
[2023-05-05] MEDS: CEFEPIME 1GM/ 50ML 50 ML IV SCH ×2 (09:59→22:30)
[2023-05-05] MEDS: FERROUS SULFATE 325mg EC TAB PO SCH (10:00)
[2023-05-05] MEDS: TAMSULOSIN HYDROCHLORIDE 0.4 MG CAP PO SCH (10:00)
[2023-05-05] MEDS: GEMFIBROZIL 600 MG TAB PO SCH ×2 (10:00→21:18)
[2023-05-05] MEDS: DIGOXIN 0.125 MG TAB PO SCH (10:01)
[2023-05-05] MEDS: SENNA 8.6 MG TAB PO SCH (10:01)
[2023-05-05] MEDS: PANTOPRAZOLE 40 MG TAB PO SCH (10:01)
[2023-05-05] MEDS: SODIUM CHLOR 0.9% PF (SALINE LOCK) 10ML VIAL/SYR IV SCH ×2 (10:02→21:18)
[2023-05-05] MEDS: MONTELUKAST SODIUM 10 MG TAB PO SCH (21:18)
[2023-05-05] MEDS: VANCOMYCIN 750mg/250ml 250 ML IV SCH (21:30)
[2023-05-06] VITALS (18 sets, daily range): BP systolic 132–151; BP diastolic 50–76; PULSE 96–121; RESP 14–22; TEMP 97.3–98.8; O2SAT 92–100
[2023-05-06] MEDS: IPRATROPIUM BROM 0.5 MG/2.5ML INH SOL NEB SCH ×6 (01:41→22:36)
[2023-05-06] MEDS: ALBUTEROL SULF 2.5 MG/0.5ML(0.5%) NEB SOLN NEB PRN ×4 (06:11→22:36)
[2023-05-06] MEDS: SODIUM CHLORIDE 0.9% 1,000 ML IV SCH (06:25)
[2023-05-06] MEDS: LEVOTHYROXINE SODIUM 25 MCG TAB PO SCH (06:38)
[2023-05-06] MEDS: CYANOCOBALAMIN 500 MCG TAB PO SCH (06:38)
[2023-05-06] MEDS: ACCU-CHEK COMFORT CURVE STRIP VI SCH ×7 (06:38→23:30)
[2023-05-06] MEDS: InsuLIN REG 1unit/0.01ml Soln (100units/ml) SC SCH ×4 (06:53→23:30)
[2023-05-06 07:09] LABS: Mean Corpuscular Hemoglobin 25.2 pg (28.0-32.0); Mean Corpuscular Hgb Conc. 31.9 g/dL (32.0-36.0)
[2023-05-06 07:12] LABS: Basophils # (auto) 0.1 10 ^3/uL (0-0.2); Basophils % (auto) 0.6 % (0.0-2.0); Eosinophils # (auto) 0.8 10 ^3/uL (0-0.8); Eosinophils % (auto) 4.6 % (0.0-7.0); Hematocrit 33.2 % (41.0-53.0); Hemoglobin 10.6 g/dL (13.5-17.5); Lymphocytes # (auto) 1.7 10 ^3/uL (0.4-5.4); Lymphocytes % (auto) 9.4 % (10.0-50.0); Mean Corpuscular Volume 79.1 fL (80.0-100.0); Monocytes # (auto) 1.9 10 ^3/uL (0-1.3); Monocytes % (auto) 10.9 % (0.0-12.0); Neutrophils # (auto) 13.3 10 ^3/uL (1.6-8.6); Neutrophils % (auto) 74.5 % (37.0-80.0); Red Blood Cells 4.19 10^6/uL (4.5-5.90); Red Cell Distribution Width 18.6 % (11.8-14.3); White Blood Cell 17.8 10^3/uL (4.4-10.8)
[2023-05-06 07:26] LABS: BUN/Creatinine Ratio 17.6 (10.0-20.0); Calcium 11.3 mg/dL (8.5-10.1); Potassium 4.4 mmol/L (3.5-5.1)
[2023-05-06] MEDS ORDERED: DEXTROSE (50%) 50ML SYRG IV PRN (10:00)
[2023-05-06] MEDS ORDERED: AMPICILLIN & SULBACTAM SODIUM 3 GM in SODIUM CHL 0.9% 100 ML IV SCH (10:00)
[2023-05-06] MEDS: FERROUS SULFATE 325mg EC TAB PO SCH (10:49)
[2023-05-06] MEDS: GEMFIBROZIL 600 MG TAB PO SCH ×2 (10:49→23:26)
[2023-05-06] MEDS: DIGOXIN 0.125 MG TAB PO SCH (10:49)
[2023-05-06] MEDS: FLUCONAZOLE 200MG/100ML 100 ML IV SCH ×2 (10:49→12:13)
[2023-05-06] MEDS: PANTOPRAZOLE 40 MG TAB PO SCH (10:50)
[2023-05-06] MEDS: TAMSULOSIN HYDROCHLORIDE 0.4 MG CAP PO SCH (10:50)
[2023-05-06] MEDS: SENNA 8.6 MG TAB PO SCH (10:50)
[2023-05-06] MEDS: SODIUM CHLOR 0.9% PF (SALINE LOCK) 10ML VIAL/SYR IV SCH ×2 (10:51→23:28)
[2023-05-06] MEDS: Glucerna Carbsteady SHAKE Stawberry 8oz PO SCH ×2 (12:31→18:27)
[2023-05-06] MEDS: AMPICILLIN & SULBACTAM SODIUM 3 GM in SODIUM CHL 0.9% 100 ML IV SCH (18:23)
[2023-05-06] MEDS: HYDROcodone-ACET 5/325MG TAB PO PRN (19:56)
[2023-05-06] MEDS: MONTELUKAST SODIUM 10 MG TAB PO SCH (23:27)
[2023-05-07] VITALS (16 sets, daily range): BP systolic 122–168; BP diastolic 59–89; PULSE 95–146; RESP 17–24; TEMP 97.8–102.5; O2SAT 93–100
[2023-05-07] MEDS: IPRATROPIUM BROM 0.5 MG/2.5ML INH SOL NEB SCH ×6 (02:00→21:52)
[2023-05-07] MEDS: AMPICILLIN & SULBACTAM SODIUM 3 GM in SODIUM CHL 0.9% 100 ML IV SCH ×4 (02:02→20:06)
[2023-05-07 06:22] LABS: Potassium 4.4 mmol/L (3.5-5.1)
[2023-05-07] MEDS: LEVOTHYROXINE SODIUM 25 MCG TAB PO SCH (06:25)
[2023-05-07 06:27] LABS: BUN/Creatinine Ratio 20.4 (10.0-20.0)
[2023-05-07] MEDS: ACCU-CHEK COMFORT CURVE STRIP VI SCH ×8 (06:34→22:00)
[2023-05-07] MEDS: InsuLIN REG 1unit/0.01ml Soln (100units/ml) SC SCH ×4 (06:42→22:36)
[2023-05-07] MEDS: CYANOCOBALAMIN 500 MCG TAB PO SCH (06:46)
[2023-05-07] MEDS: ALBUTEROL SULF 2.5 MG/0.5ML(0.5%) NEB SOLN NEB PRN ×4 (08:00→21:52)
[2023-05-07 08:14] LABS: Basophils # (auto) 0.1 10 ^3/uL (0-0.2); Basophils % (auto) 0.4 % (0.0-2.0); Eosinophils # (auto) 0.7 10 ^3/uL (0-0.8); Eosinophils % (auto) 4.6 % (0.0-7.0); Hematocrit 31.1 % (41.0-53.0); Hemoglobin 9.5 g/dL (13.5-17.5); Lymphocytes # (auto) 1.8 10 ^3/uL (0.4-5.4); Lymphocytes % (auto) 11.4 % (10.0-50.0); Mean Corpuscular Hemoglobin 25.5 pg (28.0-32.0); Mean Corpuscular Hgb Conc. 30.4 g/dL (32.0-36.0); Mean Corpuscular Volume 83.6 fL (80.0-100.0); Monocytes # (auto) 1.5 10 ^3/uL (0-1.3); Monocytes % (auto) 9.6 % (0.0-12.0); Neutrophils # (auto) 11.5 10 ^3/uL (1.6-8.6); Nucleated Red Blood Cells % 0.2 %; Red Blood Cells 3.72 10^6/uL (4.5-5.90); Red Cell Distribution Width 18.5 % (11.8-14.3); White Blood Cell 15.5 10^3/uL (4.4-10.8)
[2023-05-07] MEDS: TAMSULOSIN HYDROCHLORIDE 0.4 MG CAP PO SCH (10:08)
[2023-05-07] MEDS: PANTOPRAZOLE 40 MG TAB PO SCH (10:08)
[2023-05-07] MEDS: DIGOXIN 0.125 MG TAB PO SCH (10:08)
[2023-05-07] MEDS: SENNA 8.6 MG TAB PO SCH (10:08)
[2023-05-07] MEDS: FERROUS SULFATE 325mg EC TAB PO SCH (10:08)
[2023-05-07] MEDS: GEMFIBROZIL 600 MG TAB PO SCH (10:08)
[2023-05-07] MEDS: FLUCONAZOLE 200MG/100ML 100 ML IV SCH ×2 (10:09→11:33)
[2023-05-07] MEDS: SODIUM CHLOR 0.9% PF (SALINE LOCK) 10ML VIAL/SYR IV SCH ×2 (10:15→22:37)
[2023-05-07] MEDS: Glucerna Carbsteady SHAKE Stawberry 8oz PO SCH ×3 (10:15→18:00)
[2023-05-07] MEDS ORDERED: LACTULOSE 20Gm/30ML SOLN PO ONE (12:45)
[2023-05-07] MEDS ORDERED: METOPROLOL TARTRATE 25 MG TAB PO ONE (14:00)
[2023-05-07] MEDS ORDERED: ZOLEDRONIC ACID 4 MG in SODIUM CHL 0.9% 100 ML IV ONE (15:00)
[2023-05-07] MEDS: ACETAMINOPHEN 325 MG TAB PO PRN (17:05)
[2023-05-07] MEDS: MONTELUKAST SODIUM 10 MG TAB PO SCH (22:28)
[2023-05-07] MEDS: METOPROLOL TARTRATE 25 MG TAB PO SCH (22:28)
[2023-05-08] VITALS (17 sets, daily range): BP systolic 134–159; BP diastolic 61–71; PULSE 89–146; RESP 18–22; TEMP 97.2–98.9; O2SAT 96–100
[2023-05-08] MEDS: IPRATROPIUM BROM 0.5 MG/2.5ML INH SOL NEB SCH ×6 (02:00→22:28)
[2023-05-08] MEDS: AMPICILLIN & SULBACTAM SODIUM 3 GM in SODIUM CHL 0.9% 100 ML IV SCH ×2 (02:09→09:01)
[2023-05-08 05:44] LABS: Hemoglobin 8.9 g/dL (13.5-17.5); Mean Corpuscular Hemoglobin 24.7 pg (28.0-32.0); Mean Corpuscular Hgb Conc. 31.4 g/dL (32.0-36.0); Mean Corpuscular Volume 78.8 fL (80.0-100.0)
[2023-05-08 05:46] LABS: Hematocrit 28.3 % (41.0-53.0); Red Blood Cells 3.59 10^6/uL (4.5-5.90); Red Cell Distribution Width 18.6 % (11.8-14.3); White Blood Cell 19.7 10^3/uL (4.4-10.8)
[2023-05-08 06:02] LABS: Calcium 11.2 mg/dL (8.5-10.1); Potassium 4.1 mmol/L (3.5-5.1)
[2023-05-08 06:04] LABS: BUN/Creatinine Ratio 15.2 (10.0-20.0)
[2023-05-08 06:09] LABS: Basophils % (manual) 0 (0.0-2.0); Blast Cells 0; Metamyelocytes % 0; Myelocytes % 0; Promyelocytes % 0; Reactive Lymphocytes 0
[2023-05-08] MEDS: ALBUTEROL SULF 2.5 MG/0.5ML(0.5%) NEB SOLN NEB PRN ×3 (06:29→14:18)
[2023-05-08] MEDS: CYANOCOBALAMIN 500 MCG TAB PO SCH (06:41)
[2023-05-08] MEDS: LEVOTHYROXINE SODIUM 25 MCG TAB PO SCH (06:41)
[2023-05-08] MEDS: ACCU-CHEK COMFORT CURVE STRIP VI SCH ×8 (06:55→22:07)
[2023-05-08] MEDS: InsuLIN REG 1unit/0.01ml Soln (100units/ml) SC SCH ×4 (06:55→22:17)
[2023-05-08 06:56] LABS: Band Neutrophils % (manual) 3; Eosinophils % (manual) 3 (0-7); Lymphocytes % (manual) 14 (10.0-50.0); Monocytes % (manual) 2 (0-12); Platelet Estimate Adequate
[2023-05-08] MEDS ORDERED: SODIUM CHLOR 0.9% PF (SALINE LOCK) 10ML VIAL/SYR IV ONE (07:45)
[2023-05-08] MEDS: Glucerna Carbsteady SHAKE Stawberry 8oz PO SCH ×3 (08:00→17:46)
[2023-05-08] MEDS ORDERED: LACTULOSE 20Gm/30ML SOLN PO ONE (08:45)
[2023-05-08] MEDS: FLUCONAZOLE 200MG/100ML 100 ML IV SCH ×2 (09:02→11:00)
[2023-05-08] MEDS: SENNA 8.6 MG TAB PO SCH (09:05)
[2023-05-08] MEDS: TAMSULOSIN HYDROCHLORIDE 0.4 MG CAP PO SCH (09:05)
[2023-05-08] MEDS: PANTOPRAZOLE 40 MG TAB PO SCH (09:06)
[2023-05-08] MEDS: FERROUS SULFATE 325mg EC TAB PO SCH (09:06)
[2023-05-08] MEDS: METOPROLOL TARTRATE 25 MG TAB PO SCH ×2 (09:07→22:06)
[2023-05-08] MEDS: SODIUM CHLOR 0.9% PF (SALINE LOCK) 10ML VIAL/SYR IV SCH ×2 (10:00→22:05)
[2023-05-08] MEDS ORDERED: SODIUM CHL 3% 500 ML IV ONE (10:00)
[2023-05-08] MEDS: LINEZOLID 600MG/300ML 300 ML IV SCH ×2 (11:35→22:06)
[2023-05-08] MEDS: levoFLOXacin 500MG 100 ML IV SCH (11:36)
[2023-05-08] MEDS: HYDROcodone-ACET 5/325MG TAB PO PRN (15:35)
[2023-05-08] MEDS: MONTELUKAST SODIUM 10 MG TAB PO SCH (22:07)
[2023-05-09] VITALS (19 sets, daily range): BP systolic 119–167; BP diastolic 65–98; PULSE 89–109; RESP 15–21; TEMP 96.4–98.7; O2SAT 98–100
[2023-05-09] MEDS: IPRATROPIUM BROM 0.5 MG/2.5ML INH SOL NEB SCH ×6 (01:39→22:25)
[2023-05-09] MEDS: ACCU-CHEK COMFORT CURVE STRIP VI SCH ×8 (06:03→22:00)
[2023-05-09 06:15] LABS: Potassium 4.4 mmol/L (3.5-5.1)
[2023-05-09] MEDS: LEVOTHYROXINE SODIUM 25 MCG TAB PO SCH (06:15)
[2023-05-09] MEDS: CYANOCOBALAMIN 500 MCG TAB PO SCH (06:15)
[2023-05-09] MEDS: InsuLIN REG 1unit/0.01ml Soln (100units/ml) SC SCH ×4 (06:23→22:37)
[2023-05-09 06:24] LABS: BUN/Creatinine Ratio 15.4 (10.0-20.0); Calcium 10.2 mg/dL (8.5-10.1)
[2023-05-09 06:37] LABS: Hemoglobin 8.4 g/dL (13.5-17.5)
[2023-05-09 06:40] LABS: Mean Corpuscular Hemoglobin 24.9 pg (28.0-32.0); Mean Corpuscular Hgb Conc. 32.3 g/dL (32.0-36.0); Mean Corpuscular Volume 77.1 fL (80.0-100.0); Red Blood Cells 3.37 10^6/uL (4.5-5.90); Red Cell Distribution Width 17.9 % (11.8-14.3); White Blood Cell 16.8 10^3/uL (4.4-10.8)
[2023-05-09 06:43] LABS: Band Neutrophils % (manual) 0; Basophils % (manual) 0 (0.0-2.0); Blast Cells 0; Metamyelocytes % 0; Myelocytes % 0; Promyelocytes % 0; Reactive Lymphocytes 0
[2023-05-09] MEDS: ALBUTEROL SULF 2.5 MG/0.5ML(0.5%) NEB SOLN NEB PRN ×5 (07:00→22:25)
[2023-05-09] MEDS ORDERED: INSULIN LANTUS (GLARGINE) 1 /0.01ml (100units/ml) SC SCH ×2 (07:00→21:45)
[2023-05-09 07:16] LABS: Eosinophils % (manual) 5 (0-7); Lymphocytes % (manual) 10 (10.0-50.0); Monocytes % (manual) 15 (0-12)
[2023-05-09 07:17] LABS: Platelet Estimate Adequate
[2023-05-09] MEDS: Glucerna Carbsteady SHAKE Stawberry 8oz PO SCH ×3 (08:30→18:16)
[2023-05-09] MEDS: FLUCONAZOLE 200MG/100ML 100 ML IV SCH ×2 (09:10→14:00)
[2023-05-09] MEDS: levoFLOXacin 500MG 100 ML IV SCH (10:19)
[2023-05-09] MEDS: SENNA 8.6 MG TAB PO SCH (10:21)
[2023-05-09] MEDS: FERROUS SULFATE 325mg EC TAB PO SCH (10:21)
[2023-05-09] MEDS: TAMSULOSIN HYDROCHLORIDE 0.4 MG CAP PO SCH (10:21)
[2023-05-09] MEDS: PANTOPRAZOLE 40 MG TAB PO SCH (10:21)
[2023-05-09] MEDS: METOPROLOL TARTRATE 25 MG TAB PO SCH ×2 (10:22→21:24)
[2023-05-09] MEDS: SODIUM CHLOR 0.9% PF (SALINE LOCK) 10ML VIAL/SYR IV SCH ×2 (10:28→21:24)
[2023-05-09] MEDS: LINEZOLID 600MG/300ML 300 ML IV SCH ×2 (12:09→22:28)
[2023-05-09] MEDS: HYDROcodone-ACET 5/325MG TAB PO PRN (19:59)
[2023-05-09] MEDS: MONTELUKAST SODIUM 10 MG TAB PO SCH (21:23)
[2023-05-10] VITALS (18 sets, daily range): BP systolic 122–150; BP diastolic 51–75; PULSE 62–108; RESP 18–25; TEMP 97.5–99.2; O2SAT 95–100
[2023-05-10] MEDS: HYDROcodone-ACET 5/325MG TAB PO PRN (03:02)
[2023-05-10] MEDS: ALBUTEROL SULF 2.5 MG/0.5ML(0.5%) NEB SOLN NEB PRN (04:11)
[2023-05-10] MEDS: IPRATROPIUM BROM 0.5 MG/2.5ML INH SOL NEB SCH ×4 (04:11→18:18)
[2023-05-10 05:38] LABS: Hemoglobin 8.1 g/dL (13.5-17.5)
[2023-05-10 05:39] LABS: Hematocrit 24.5 % (41.0-53.0); Mean Corpuscular Hemoglobin 25.4 pg (28.0-32.0); Mean Corpuscular Hgb Conc. 32.9 g/dL (32.0-36.0); Mean Corpuscular Volume 77.1 fL (80.0-100.0); Red Blood Cells 3.18 10^6/uL (4.5-5.90); Red Cell Distribution Width 17.7 % (11.8-14.3); White Blood Cell 14.9 10^3/uL (4.4-10.8)
[2023-05-10 05:43] LABS: Basophils % (manual) 0 (0.0-2.0); Blast Cells 0; Metamyelocytes % 0; Myelocytes % 0; Promyelocytes % 0; Reactive Lymphocytes 0
[2023-05-10 05:57] LABS: BUN/Creatinine Ratio 12.3 (10.0-20.0); Calcium 9.4 mg/dL (8.5-10.1); Potassium 4.2 mmol/L (3.5-5.1)
[2023-05-10] MEDS: CYANOCOBALAMIN 500 MCG TAB PO SCH (06:23)
[2023-05-10] MEDS: LEVOTHYROXINE SODIUM 25 MCG TAB PO SCH (06:23)
[2023-05-10] MEDS: InsuLIN REG 1unit/0.01ml Soln (100units/ml) SC SCH ×4 (06:29→21:55)
[2023-05-10] MEDS: ACCU-CHEK COMFORT CURVE STRIP VI SCH ×8 (06:30→21:42)
[2023-05-10] MEDS: INSULIN LANTUS (GLARGINE) 1 /0.01ml (100units/ml) SC SCH (06:32)
[2023-05-10 06:38] LABS: Band Neutrophils % (manual) 1; Eosinophils % (manual) 9 (0-7); Lymphocytes % (manual) 13 (10.0-50.0); Monocytes % (manual) 10 (0-12); Platelet Estimate Adequate
[2023-05-10] MEDS ORDERED: SODIUM CHL 3% 300 ML IV ONE (08:15)
[2023-05-10] MEDS: Glucerna Carbsteady SHAKE Stawberry 8oz PO SCH ×3 (08:15→18:00)
[2023-05-10] MEDS: FERROUS SULFATE 325mg EC TAB PO SCH (09:58)
[2023-05-10] MEDS: FLUCONAZOLE 200MG/100ML 100 ML IV SCH ×2 (09:59→12:09)
[2023-05-10] MEDS: levoFLOXacin 500MG 100 ML IV SCH (09:59)
[2023-05-10] MEDS: TAMSULOSIN HYDROCHLORIDE 0.4 MG CAP PO SCH (09:59)
[2023-05-10] MEDS: PANTOPRAZOLE 40 MG TAB PO SCH (09:59)
[2023-05-10] MEDS: METOPROLOL TARTRATE 25 MG TAB PO SCH ×2 (09:59→21:37)
[2023-05-10] MEDS: SENNA 8.6 MG TAB PO SCH (10:00)
[2023-05-10] MEDS: SODIUM CHLOR 0.9% PF (SALINE LOCK) 10ML VIAL/SYR IV SCH ×2 (10:03→21:38)
[2023-05-10] MEDS: LINEZOLID 600MG/300ML 300 ML IV SCH ×2 (10:04→21:38)
[2023-05-10] MEDS: levoFLOXacin 500 MG TAB PO SCH (12:27)
[2023-05-10] MEDS ORDERED: BACITRACIN TOP OINT 1 UD PKG TOP ONE (12:45)
[2023-05-10] MEDS: ACETAMINOPHEN 325 MG TAB PO PRN (13:36)
[2023-05-10] MEDS: LEVALBUTEROL HCL 1.25 MG/3 ML NEB NEB SCH (18:17)
[2023-05-10] MEDS: MONTELUKAST SODIUM 10 MG TAB PO SCH (21:38)
[2023-05-11] VITALS (16 sets, daily range): BP systolic 133–148; BP diastolic 55–69; PULSE 84–104; RESP 18–22; TEMP 97.6–100; O2SAT 98–100
[2023-05-11] MEDS: IPRATROPIUM BROM 0.5 MG/2.5ML INH SOL NEB SCH ×4 (00:14→18:25)
[2023-05-11] MEDS: LEVALBUTEROL HCL 1.25 MG/3 ML NEB NEB SCH ×4 (00:14→18:26)
[2023-05-11] MEDS: LEVOTHYROXINE SODIUM 25 MCG TAB PO SCH (06:22)
[2023-05-11] MEDS: CYANOCOBALAMIN 500 MCG TAB PO SCH (06:23)
[2023-05-11] MEDS: InsuLIN REG 1unit/0.01ml Soln (100units/ml) SC SCH ×4 (06:29→22:04)
[2023-05-11] MEDS: INSULIN LANTUS (GLARGINE) 1 /0.01ml (100units/ml) SC SCH (06:30)
[2023-05-11] MEDS: ACCU-CHEK COMFORT CURVE STRIP VI SCH ×8 (06:34→22:00)
[2023-05-11] MEDS: Glucerna Carbsteady SHAKE Stawberry 8oz PO SCH ×3 (08:00→18:00)
[2023-05-11 08:52] LABS: Eosinophils # (auto) 0.8 10 ^3/uL (0-0.8)
[2023-05-11 08:53] LABS: Basophils # (auto) 0 10 ^3/uL (0-0.2); Basophils % (auto) 0.2 % (0.0-2.0); Eosinophils % (auto) 6.1 % (0.0-7.0); Hematocrit 24.8 % (41.0-53.0); Hemoglobin 8.1 g/dL (13.5-17.5); Lymphocytes # (auto) 1.9 10 ^3/uL (0.4-5.4); Lymphocytes % (auto) 14.9 % (10.0-50.0); Mean Corpuscular Hemoglobin 25.1 pg (28.0-32.0); Mean Corpuscular Hgb Conc. 32.5 g/dL (32.0-36.0); Mean Corpuscular Volume 77.1 fL (80.0-100.0); Monocytes # (auto) 0.9 10 ^3/uL (0-1.3); Monocytes % (auto) 6.7 % (0.0-12.0); Neutrophils # (auto) 9.3 10 ^3/uL (1.6-8.6); Neutrophils % (auto) 72.1 % (37.0-80.0); Nucleated Red Blood Cells % 0.1 %; Red Blood Cells 3.22 10^6/uL (4.5-5.90); White Blood Cell 12.8 10^3/uL (4.4-10.8)
[2023-05-11] MEDS: TAMSULOSIN HYDROCHLORIDE 0.4 MG CAP PO SCH (09:00)
[2023-05-11] MEDS: levoFLOXacin 500 MG TAB PO SCH (09:00)
[2023-05-11] MEDS: FERROUS SULFATE 325mg EC TAB PO SCH (09:00)
[2023-05-11] MEDS: PANTOPRAZOLE 40 MG TAB PO SCH (09:00)
[2023-05-11] MEDS: SENNA 8.6 MG TAB PO SCH (09:00)
[2023-05-11] MEDS: METOPROLOL TARTRATE 25 MG TAB PO SCH ×2 (09:01→21:58)
[2023-05-11] MEDS: FLUCONAZOLE 200MG/100ML 100 ML IV SCH (09:01)
[2023-05-11 09:09] LABS: BUN/Creatinine Ratio 11.6 (10.0-20.0); Calcium 8.9 mg/dL (8.5-10.1); Potassium 4.3 mmol/L (3.5-5.1)
[2023-05-11] MEDS: SODIUM CHLOR 0.9% PF (SALINE LOCK) 10ML VIAL/SYR IV SCH ×2 (10:04→22:00)
[2023-05-11] MEDS: LINEZOLID 600MG/300ML 300 ML IV SCH ×2 (10:04→22:00)
[2023-05-11] MEDS: MONTELUKAST SODIUM 10 MG TAB PO SCH (21:57)
[2023-05-12] VITALS (17 sets, daily range): BP systolic 142–155; BP diastolic 52–69; PULSE 87–197; RESP 16–22; TEMP 97.2–99.8; O2SAT 96–100
[2023-05-12] MEDS: IPRATROPIUM BROM 0.5 MG/2.5ML INH SOL NEB SCH ×4 (00:09→18:29)
[2023-05-12] MEDS: LEVALBUTEROL HCL 1.25 MG/3 ML NEB NEB SCH ×4 (00:09→18:29)
[2023-05-12 05:49] LABS: Hematocrit 24.9 % (41.0-53.0); Mean Corpuscular Hemoglobin 24.6 pg (28.0-32.0); Mean Corpuscular Hgb Conc. 32.1 g/dL (32.0-36.0); Mean Corpuscular Volume 76.5 fL (80.0-100.0); Red Blood Cells 3.26 10^6/uL (4.5-5.90); Red Cell Distribution Width 17.9 % (11.8-14.3)
[2023-05-12 06:05] LABS: Basophils % (manual) 0 (0.0-2.0); Blast Cells 0; Promyelocytes % 0; Reactive Lymphocytes 0
[2023-05-12 06:15] LABS: Potassium 4.2 mmol/L (3.5-5.1)
[2023-05-12] MEDS: LEVOTHYROXINE SODIUM 25 MCG TAB PO SCH (06:17)
[2023-05-12] MEDS: CYANOCOBALAMIN 500 MCG TAB PO SCH (06:17)
[2023-05-12] MEDS: ACCU-CHEK COMFORT CURVE STRIP VI SCH ×8 (06:18→21:34)
[2023-05-12 06:20] LABS: BUN/Creatinine Ratio 12.2 (10.0-20.0); Calcium 8.5 mg/dL (8.5-10.1)
[2023-05-12] MEDS: InsuLIN REG 1unit/0.01ml Soln (100units/ml) SC SCH ×4 (06:22→21:32)
[2023-05-12] MEDS: INSULIN LANTUS (GLARGINE) 1 /0.01ml (100units/ml) SC SCH (06:23)
[2023-05-12] MEDS: Glucerna Carbsteady SHAKE Stawberry 8oz PO SCH ×3 (08:00→18:00)
[2023-05-12 08:14] LABS: Band Neutrophils % (manual) 8; Eosinophils % (manual) 7 (0-7); Lymphocytes % (manual) 11 (10.0-50.0); Metamyelocytes % 1; Monocytes % (manual) 4 (0-12); Myelocytes % 1
[2023-05-12 08:15] LABS: Platelet Estimate Markedly Increased
[2023-05-12] MEDS: PANTOPRAZOLE 40 MG TAB PO SCH (09:33)
[2023-05-12] MEDS: levoFLOXacin 500 MG TAB PO SCH (09:33)
[2023-05-12] MEDS: FERROUS SULFATE 325mg EC TAB PO SCH (09:33)
[2023-05-12] MEDS: TAMSULOSIN HYDROCHLORIDE 0.4 MG CAP PO SCH (09:34)
[2023-05-12] MEDS: METOPROLOL TARTRATE 25 MG TAB PO SCH ×2 (09:34→21:20)
[2023-05-12] MEDS: LINEZOLID 600MG/300ML 300 ML IV SCH ×2 (09:35→21:27)
[2023-05-12] MEDS: SODIUM CHLOR 0.9% PF (SALINE LOCK) 10ML VIAL/SYR IV SCH ×2 (09:35→21:21)
[2023-05-12] MEDS: HYDROcodone-ACET 5/325MG TAB PO PRN (09:47)
[2023-05-12] MEDS: SENNA 8.6 MG TAB PO SCH ×2 (10:00→11:44)
[2023-05-12] MEDS: FLUCONAZOLE 200MG/100ML 100 ML IV SCH ×2 (11:44→15:14)
[2023-05-12] MEDS ORDERED: ONDANSETRON HCL 4 MG/2 ML VIAL IV PRN (12:45)
[2023-05-12] MEDS ORDERED: BACITRACIN TOP OINT 1 UD PKG TOP ONE (15:15)
[2023-05-12] MEDS: MONTELUKAST SODIUM 10 MG TAB PO SCH (21:20)
[2023-05-12] MEDS: ALBUTEROL SULF 2.5 MG/0.5ML(0.5%) NEB SOLN NEB PRN (21:51)
[2023-05-12] MEDS: ACETAMINOPHEN 325 MG TAB PO PRN (23:14)
[2023-05-13] VITALS (18 sets, daily range): BP systolic 108–138; BP diastolic 42–80; PULSE 79–116; RESP 16–22; TEMP 97.6–98.4; O2SAT 98–100
[2023-05-13] MEDS: HYDROcodone-ACET 5/325MG TAB PO PRN ×3 (01:24→21:14)
[2023-05-13] MEDS: IPRATROPIUM BROM 0.5 MG/2.5ML INH SOL NEB SCH ×4 (06:24→21:43)
[2023-05-13] MEDS: LEVALBUTEROL HCL 1.25 MG/3 ML NEB NEB SCH ×4 (06:24→21:43)
[2023-05-13] MEDS: InsuLIN REG 1unit/0.01ml Soln (100units/ml) SC SCH ×4 (06:53→21:26)
[2023-05-13] MEDS: INSULIN LANTUS (GLARGINE) 1 /0.01ml (100units/ml) SC SCH (06:53)
[2023-05-13] MEDS: ACCU-CHEK COMFORT CURVE STRIP VI SCH ×8 (06:53→21:19)
[2023-05-13] MEDS: LEVOTHYROXINE SODIUM 25 MCG TAB PO SCH (06:59)
[2023-05-13] MEDS: CYANOCOBALAMIN 500 MCG TAB PO SCH (06:59)
[2023-05-13 08:39] LABS: Hemoglobin 7.3 g/dL (13.5-17.5); Mean Corpuscular Hgb Conc. 32.4 g/dL (32.0-36.0)
[2023-05-13 08:40] LABS: Hematocrit 22.4 % (41.0-53.0); Mean Corpuscular Hemoglobin 24.8 pg (28.0-32.0); Mean Corpuscular Volume 76.7 fL (80.0-100.0); Red Blood Cells 2.93 10^6/uL (4.5-5.90); Red Cell Distribution Width 17.8 % (11.8-14.3); White Blood Cell 11.6 10^3/uL (4.4-10.8)
[2023-05-13 08:51] LABS: Basophils % (manual) 0 (0.0-2.0); Blast Cells 0; Metamyelocytes % 0; Myelocytes % 0; Promyelocytes % 0; Reactive Lymphocytes 0
[2023-05-13 09:05] LABS: Calcium 7.9 mg/dL (8.5-10.1); Potassium 4.6 mmol/L (3.5-5.1)
[2023-05-13 09:08] LABS: BUN/Creatinine Ratio 15.4 (10.0-20.0)
[2023-05-13] MEDS: SENNA 8.6 MG TAB PO SCH ×2 (10:00→11:20)
[2023-05-13] MEDS: FLUCONAZOLE 200MG/100ML 100 ML IV SCH ×2 (11:00→14:01)
[2023-05-13] MEDS: SODIUM CHLOR 0.9% PF (SALINE LOCK) 10ML VIAL/SYR IV SCH ×2 (11:17→21:22)
[2023-05-13] MEDS: BACITRACIN TOP OINT 1 UD PKG TOP SCH (11:18)
[2023-05-13] MEDS: levoFLOXacin 500 MG TAB PO SCH (11:21)
[2023-05-13] MEDS: FERROUS SULFATE 325mg EC TAB PO SCH (11:21)
[2023-05-13] MEDS: LOSARTAN POTASSIUM 25 MG TAB PO SCH (11:21)
[2023-05-13] MEDS: PANTOPRAZOLE 40 MG TAB PO SCH (11:21)
[2023-05-13] MEDS: LINEZOLID 600MG/300ML 300 ML IV SCH ×2 (11:22→21:22)
[2023-05-13] MEDS: TAMSULOSIN HYDROCHLORIDE 0.4 MG CAP PO SCH (11:22)
[2023-05-13] MEDS: METOPROLOL TARTRATE 25 MG TAB PO SCH ×2 (11:22→21:28)
[2023-05-13] MEDS: Glucerna Carbsteady SHAKE Stawberry 8oz PO SCH ×3 (11:23→18:28)
[2023-05-13 12:31] LABS: Band Neutrophils % (manual) 6; Eosinophils % (manual) 5 (0-7); Lymphocytes % (manual) 8 (10.0-50.0); Monocytes % (manual) 4 (0-12)
[2023-05-13 12:33] LABS: Platelet Estimate Adequate
[2023-05-13] MEDS: ACETAMINOPHEN 325 MG TAB PO PRN (19:03)
[2023-05-13] MEDS: MONTELUKAST SODIUM 10 MG TAB PO SCH (21:15)
[2023-05-14] VITALS (10 sets, daily range): BP systolic 110–140; BP diastolic 55–56; PULSE 84–118; RESP 16–22; TEMP 98.2–98.3; O2SAT 97–100
[2023-05-14] MEDS: IPRATROPIUM BROM 0.5 MG/2.5ML INH SOL NEB SCH ×3 (01:05→12:09)
[2023-05-14] MEDS: LEVALBUTEROL HCL 1.25 MG/3 ML NEB NEB SCH ×3 (01:05→12:09)
[2023-05-14] MEDS: HYDROcodone-ACET 5/325MG TAB PO PRN (05:39)
[2023-05-14] MEDS: LEVOTHYROXINE SODIUM 25 MCG TAB PO SCH (06:26)
[2023-05-14] MEDS: CYANOCOBALAMIN 500 MCG TAB PO SCH (06:26)
[2023-05-14] MEDS: InsuLIN REG 1unit/0.01ml Soln (100units/ml) SC SCH ×2 (06:34→11:31)
[2023-05-14] MEDS: ACCU-CHEK COMFORT CURVE STRIP VI SCH ×4 (06:34→11:30)
[2023-05-14] MEDS: INSULIN LANTUS (GLARGINE) 1 /0.01ml (100units/ml) SC SCH (06:36)
[2023-05-14 07:43] LABS: Basophils # (auto) 0.1 10 ^3/uL (0-0.2); Nucleated Red Blood Cells % 0.1 %
[2023-05-14 07:47] LABS: Basophils % (auto) 0.7 % (0.0-2.0); Eosinophils # (auto) 1.2 10 ^3/uL (0-0.8); Hematocrit 27.9 % (41.0-53.0); Hemoglobin 8.9 g/dL (13.5-17.5); Lymphocytes # (auto) 2.2 10 ^3/uL (0.4-5.4); Lymphocytes % (auto) 14.6 % (10.0-50.0); Mean Corpuscular Hemoglobin 25.1 pg (28.0-32.0); Mean Corpuscular Volume 78.4 fL (80.0-100.0); Monocytes % (auto) 6.5 % (0.0-12.0); Neutrophils # (auto) 10.5 10 ^3/uL (1.6-8.6); Neutrophils % (auto) 70.2 % (37.0-80.0); Red Blood Cells 3.56 10^6/uL (4.5-5.90); Red Cell Distribution Width 16.8 % (11.8-14.3)
[2023-05-14] MEDS: FLUCONAZOLE 200MG/100ML 100 ML IV SCH (09:48)
[2023-05-14] MEDS: levoFLOXacin 500 MG TAB PO SCH (09:48)
[2023-05-14] MEDS: BACITRACIN TOP OINT 1 UD PKG TOP SCH (09:48)
[2023-05-14] MEDS: SODIUM CHLOR 0.9% PF (SALINE LOCK) 10ML VIAL/SYR IV SCH (09:48)
[2023-05-14] MEDS: LOSARTAN POTASSIUM 25 MG TAB PO SCH (09:50)
[2023-05-14] MEDS: METOPROLOL TARTRATE 25 MG TAB PO SCH (09:50)
[2023-05-14] MEDS: SENNA 8.6 MG TAB PO SCH (09:50)
[2023-05-14] MEDS: TAMSULOSIN HYDROCHLORIDE 0.4 MG CAP PO SCH (09:50)
[2023-05-14] MEDS: FERROUS SULFATE 325mg EC TAB PO SCH (09:51)
[2023-05-14] MEDS: PANTOPRAZOLE 40 MG TAB PO SCH (09:51)
[2023-05-14] MEDS: Glucerna Carbsteady SHAKE Stawberry 8oz PO SCH ×2 (09:51→12:23)
[2023-05-14] MEDS: ACETAMINOPHEN 325 MG TAB PO PRN (09:57)
[2023-05-14] MEDS: LINEZOLID 600MG/300ML 300 ML IV SCH (11:29)
[2023-05-14 11:56] LABS: Chloride 98 mmol/L (98-107); Potassium 5.3 mmol/L (3.5-5.1); Sodium 125 mmol/L (136-145)
[2023-05-14 12:01] LABS: BUN/Creatinine Ratio 16.1 (10.0-20.0); Blood Urea Nitrogen 24 mg/dL (7-18); Calcium 7.8 mg/dL (8.7-10.4); Carbon Dioxide 20 mmol/L (21-32); Glucose 158 mg/dL (74-106)
[2023-05-14 12:08] LABS: Anion Gap 7 (5-15)
== END 2023-05-14 16:15 | disposition hospice, home (50) | DRG 853 ==
LOC: ER 12:02 → EDBD 12:02 → TELE 19:09 → TELE-EAST 22:22 → EAST 05-03 16:52 → TELE-EAST 05-08 02:12
PROVIDERS: ADMIT Internal Medicine; ATTEND Student in an Organized Health Care Education/Training Program
PROC: 30233N1 Transfusion of Nonautologous Red Blood Cells into Peripheral Vein, Percutaneous Approach (ICD-10-PCS; 2023-04-28)
PROC: B41GYZZ Fluoroscopy of Left Lower Extremity Arteries using Other Contrast (ICD-10-PCS; 2023-05-01)
PROC: B41FYZZ Fluoroscopy of Right Lower Extremity Arteries using Other Contrast (ICD-10-PCS; 2023-05-01)
PROC: 02HV33Z Insertion of Infusion Device into Superior Vena Cava, Percutaneous Approach (ICD-10-PCS; 2023-05-02)
PROC: B548ZZA Ultrasonography of Superior Vena Cava, Guidance (ICD-10-PCS; 2023-05-02)
PROC: 0Y6P0Z0 Detachment at Right 1st Toe, Complete, Open Approach (ICD-10-PCS; principal; 2023-05-02 10:24)
PROC: 0QTN0ZZ Resection of Right Metatarsal, Open Approach (ICD-10-PCS; 2023-05-02 10:24)
DX: A41.9 Sepsis, unspecified organism (principal); E43 Unspecified severe protein-calorie malnutrition; J96.20 Acute and chronic respiratory failure, unspecified whether with hypoxia or hypercapnia; N17.0 Acute kidney failure with tubular necrosis; G93.41 Metabolic encephalopathy; C34.90 Malignant neoplasm of unspecified part of unspecified bronchus or lung; I13.0 Hypertensive heart and chronic kidney disease with heart failure and stage 1 through stage 4 chronic kidney disease, or unspecified chronic kidney disease; I50.32 Chronic diastolic (congestive) heart failure; L03.115 Cellulitis of right lower limb; M86.8X7 Other osteomyelitis, ankle and foot; M84.48XA Pathological fracture, other site, initial encounter for fracture; E22.2 Syndrome of inappropriate secretion of antidiuretic hormone; J44.9 Chronic obstructive pulmonary disease, unspecified; N18.30 Chronic kidney disease, stage 3 unspecified; E11.22 Type 2 diabetes mellitus with diabetic chronic kidney disease; E11.621 Type 2 diabetes mellitus with foot ulcer; D50.9 Iron deficiency anemia, unspecified; L97.519 Non-pressure chronic ulcer of other part of right foot with unspecified severity; E83.52 Hypercalcemia; N40.1 Benign prostatic hyperplasia with lower urinary tract symptoms; R33.8 Other retention of urine; E03.9 Hypothyroidism, unspecified; Z68.23 Body mass index [BMI] 23.0-23.9, adult; E11.51 Type 2 diabetes mellitus with diabetic peripheral angiopathy without gangrene; E11.69 Type 2 diabetes mellitus with other specified complication; Z83.3 Family history of diabetes mellitus; Z80.3 Family history of malignant neoplasm of breast; Z89.411 Acquired absence of right great toe; Z85.118 Personal history of other malignant neoplasm of bronchus and lung; Z80.1 Family history of malignant neoplasm of trachea, bronchus and lung; Z82.5 Family history of asthma and other chronic lower respiratory diseases; Z87.891 Personal history of nicotine dependence
CPT/HCPCS: 36415; 36430; 36569; 70450; 71045; 73030; 73700; 73718; 80048; 80053; 80162; 80202; 81001; 82962; 83036; 83605; 83880; 84484; 85007; 85025; 85027; 85610; 85730; 86850; 86900; 86901; 86920; 87040; 87075; 87077; 87186; 87205; 93005; 93926; 93971; 94640; 96365; 96368; 97110; 97116; 97163; 97530; 99152; 99291; A4565; G0378; J0690; J1450; J1815; J1956; J2250; J2405; J2543; J2704; J3489; Q9967